=== PATIENT | female | born 1955 | race Caucasian/White ===

== ENCOUNTER 2017-05-29 07:11 | Observation (INO) | payer OTHER, MEDICAID ==
[2017-05-29 07:12] VITALS: BMI 23.8
[2017-05-29 08:05] LABS: BASO # 0.1 K/uL (0.0-0.2); BASO % 0.8 % (0.0-2.0); EOS # 0.1 K/uL (0.0-0.7); EOS % 0.7 % (0.0-4.0); LYMPH # 1.3 K/uL (1.0-4.3); LYMPH % 17.8 % (20.0-40.0); MEAN CELL VOLUME 87.3 fL (81.0-99.0); MEAN CORPUSCULAR HEMOGLOBIN 29.5 pg (27.0-31.0); MEAN CORPUSCULAR HGB CONC 33.8 g/dL (33.0-37.0); MEAN PLATELET VOLUME 9.5 fL (7.2-11.7); MONO # 0.5 K/uL (0.0-0.8); MONO % 7.2 % (0.0-10.0); RED CELL DISTRIBUTION WIDTH 13.7 % (11.5-14.5); WHITE BLOOD COUNT 7.4 K/uL (4.8-10.8)
--- NOTE | 2017-05-29 08:08 | C.PDOC ---
History Of Present Illness 61 y/o female, with PMHx of HTN, diabetes, hyperlipidemia, presents to ED for evaluation of intermittent left sided chest pain described as pressure for the last 2 days. Patient states that pain radiates to the left side of her back, and it is occasionally associated with shortness of breath. Pt reports being seen by PMD and theater manager, Dr. Cavanaugh, yesterday - instructed her to come to ER if symptoms returned. Pt notes taking nitroglycerin yesterday and today with transient relief of pain. She denies headache, fever, chills, cough, nausea, vomiting, diarrhea, diaphoresis,back pain, or lower extremity pain/ swelling. Time Seen by Provider: 05/29/17 07:15 Chief Complaint (Nursing): Chest Pain History Per: Patient History/Exam Limitations: no limitations Onset/Duration Of Symptoms: Days (2), Intermittent Episodes Current Symptoms Are (Timing): Still Present Severity: Mild Quality: Pressure Associated Symptoms: denies: Nausea, Diaphoresis, Syncope Modifying Factors: None Exacerbating Factors: None Alleviating Factors: None Additional History Per: Patient Past Medical History Reviewed: Historical Data, Nursing Documentation, Vital Signs Vital Signs: Last Vital Signs Temp 99.1 F 05/30/17 15:32 Pulse 82 05/30/17 16:00 Resp 20 05/30/17 15:32 BP 159/73 H 05/30/17 15:32 Pulse Ox 96 05/30/17 23:22 - Medical History PMH: Diabetes, HTN, Hyperlipidemia Family History: States: Other Other Family History: CAD - Social History Hx Tobacco Use: Yes (quit smoking 25 years ago ) Hx Alcohol Use: Yes Hx Substance Use: No - Immunization History Hx Tetanus Toxoid Vaccination: No Hx Influenza Vaccination: Yes Hx Pneumococcal Vaccination: Yes Review Of Systems Except As Marked, All Systems Reviewed And Found Negative. Constitutional: Negative for: Fever, Chills Cardiovascular: Positive for: Chest Pain. Negative for: Palpitations, Edema, Light Headedness Respiratory: Positive for: Shortness of Breath. Negative for: Cough, Sputum Gastrointestinal: Negative for: Nausea, Vomiting, Abdominal Pain Musculoskeletal: Positive for: Back Pain (left side). Negative for: Neck Pain Neurological: Negative for: Headache, Dizziness Physical Exam - Physical Exam Appears: Well, Non-toxic, No Acute Distress, Other (speaking in full sentences) Skin: Warm, Dry Head: Normacephalic Eye(s): bilateral: Normal Inspection Oral Mucosa: Moist Neck: Supple Chest: Symmetrical, No Deformity, No Tenderness Cardiovascular: Rhythm Regular Respiratory: Normal Breath Sounds, No Rales, No Rhonchi, No Wheezing Gastrointestinal/Abdominal: Normal Exam, Bowel Sounds, Soft, No Tenderness Back: Normal Inspection, No CVA Tenderness Extremity: Normal ROM, No Pedal Edema, No Calf Tenderness, Capillary Refill (<2 sec all digits), No Deformity Neurological/Psych: Oriented x3 ED Course And Treatment - Laboratory Results Result Diagrams: 05/30/17 07:06 05/30/17 07:06 ECG: Interpreted By Me, Viewed By Me ECG Rhythm: Sinus Rhythm ECG Interpretation: Normal Interpretation Of ECG: Normal axis. No acute ST/T wave changes. Rate From EC (bpm) O2 Sat by Pulse Oximetry: 96 (on RA) Pulse Ox Interpretation: Normal - Other Rad CXR X-Ray: Viewed By Me, Read By Radiologist Interpretation: Accession No. : [id number]. Patient Name / ID : DEBRA JACOBO / [id number]. Exam Date : 05/29/2017 07:46:51 ( Approved ). Study Comment : Sex / Age : F / 61Y. Creator : Abril Bishop. Dictator : Abril Bishop. Director Business Travel : Certified Genetic Counselor : Abril Bishop. Approver2 : Report Date : 05/29/2017 08:13:46. My Comment : . PROCEDURE: CHEST RADIOGRAPH, 1 VIEW. HISTORY: cp. COMPARISON: None available. FINDINGS: LUNGS: Clear. PLEURA: No pneumothorax or pleural fluid seen. CARDIOVASCULAR: Normal. OSSEOUS STRUCTURES: No significant abnormalities. VISUALIZED UPPER ABDOMEN: Normal. OTHER FINDINGS: None. IMPRESSION: No active disease. Progress Note: Blood work, CXR, EKG ordered and reviewed. Patient was given Aspirin PO, Lisinopril PO, and Isosorbide PO (patient did not take her BP meds today). IV insulin given for hyperglycemia. Spoke with hospitalist Dr. Gordon , agrees with telemetry admission for chest pain, r/o ACS. - Physician Consult Information Physician Contacted: Juliano Cavanaugh Outcome Of Conversation: Discussed patient with Dr. Cavanaugh, will see patient for cardiology consult - requests hospitalist admission. Disposition - Disposition Disposition: HOSPITALIZED Disposition Time: 10:23 Condition: STABLE - Clinical Impression Clinical Impression: Chest pain, Hyperglycemia - Scribe Statement The provider has reviewed the documentation as recorded by the Scribe Philippe Khan All medical record entries made by the Scribe were at my direction and personally dictated by me. I have reviewed the chart and agree that the record accurately reflects my personal performance of the history, physical exam, medical decision making, and the department course for this patient. I have also personally directed, reviewed, and agree with the discharge instructions and disposition. Decision To Admit - Pt Status Changed To: Hospital Disposition Of: Inpatient - Admit Certification Admit to Inpatient:: After my assessment, the patient will require hospitalization for at least two midnights. This is because of the severity of symptoms shown, intensity of services needed, and/or the medical risk in this patient being treated as an outpatient. - InPatient: Physician Admission Certification: I certify that this patient requires 2 or more midnights of care for the following reason:: see notes - . Bed Request Type: Telemetry Admitting Physician: Renita Gordon Patient Diagnosis: Chest pain, Hyperglycemia
--- NOTE | 2017-05-29 08:15 | RAD ---
PROCEDURE: CHEST RADIOGRAPH, 1 VIEW HISTORY: cp COMPARISON: None available. FINDINGS: LUNGS: Clear. PLEURA: No pneumothorax or pleural fluid seen. CARDIOVASCULAR: Normal. OSSEOUS STRUCTURES: No significant abnormalities. VISUALIZED UPPER ABDOMEN: Normal. OTHER FINDINGS: None. IMPRESSION: No active disease.
[2017-05-29 08:26] LABS: CHLORIDE 96 mmol/L (98-107); POTASSIUM 3.9 mmol/L (3.6-5.2); SODIUM 137 mmol/L (132-148)
[2017-05-29 08:28] LABS: AST/SGOT 72 U/L (14-36); BILIRUBIN,TOTAL 0.6 mg/dL (0.2-1.3); CARBON DIOXIDE 25 mmol/L (22-30); GFR AFRICAN-AMERICAN > 60
[2017-05-29 08:29] LABS: ALB/GLOB RATIO 1.3 (1.0-2.1); ALKALINE PHOSPHATASE 63 U/L (38-126); ALT/SGPT 109 U/L (9-52); BLOOD UREA NITROGEN 15 mg/dL (7-17); CALCIUM 8.4 mg/dl (8.6-10.4); GLUCOSE,RANDOM 332 mg/dL (65-105); TOTAL PROTEIN 6.9 g/dL (6.3-8.3)
[2017-05-29] MEDS ORDERED: (Novolin R) Insulin Human Regular 100 units/ml vial IV ONE (09:10)
[2017-05-29] MEDS ORDERED: (Novolin R) Insulin Human Regular 100 units/ml vial ONE (09:35)
--- NOTE | 2017-05-29 12:39 | CP.PCM.HP ---
Addendum entered and electronically signed by WellsMaster DO Xiomara 05/29/17 13: 30: Patient is also on Imdur 30mg daily as for HTN. Original Note: <Master Wells - Last Filed: 05/29/17 12:52> History of Present Illness - History of Present Illness History of Present Illness: CC: Chest Pain HPI: Patient is a 61 year old female with a history of uncontrolled IDDM, HTN, and hyperlipidemia. She is here because of reoccurring chest pain she has been having the past two days. The pain occurred while at rest 2 days ago which she says is on the left side just above her breast and also radiates to her back as well. She describes the pain as a sharp pain that is sometimes 9/10. Yesterday while driving to work she says the pain felt "heavy". She also said her blood pressure was very at 200s/100. She said they gave her nitro which she said relieved her pain. She went to see her gambling cashier yesterday as well who advised her to go to the ED if her pain returned. She started having the pain again this morning. She admits to drinking one cup of coffee before coming the hospital in her car. She admits that she had the same kind of pain about a week ago as well. She reports having a stress test last year which she thinks was normal. She does not remember having an electrocardiogram preformed. PMH: see above PSH: denies FH: Mother heart disease, DM, HTN, chronic kidney disease SH: , works as a nurse in a prison, former smoker quit 25 years ago, social drinking with one drink every month, denies illicit drug use. Allergies: NKDA PMD: Dr. Renner Behavioral Consultant: Dr. Cavanaugh Present on Admission - Present on Admission Any Indicators Present on Admission: No History of DVT/PE: No History of Uncontrolled Diabetes: Yes Urinary Catheter: No Decubitus Ulcer Present: No History Surgical Site Infection Following: None Review of Systems - Review of Systems All systems: reviewed and no additional remarkable complaints except - Constitutional Constitutional: absent: Chills, Fever, Weakness - EENT Eyes: absent: Change in Vision, Loss of Vision Ears: absent: Dizziness - Cardiovascular Cardiovascular: Chest Pain, Chest Pain at Rest, Chest Pain with Activity, Radiating Pain. absent: Dyspnea, Edema, Lightheadedness, Palpitations - Respiratory Respiratory: absent: Cough, Dyspnea - Gastrointestinal Gastrointestinal: absent: Abdominal Pain, Cramping, Diarrhea, Nausea, Vomiting - Genitourinary Genitourinary: absent: Dysuria - Musculoskeletal Musculoskeletal: Back Pain. absent: Numbness, Tingling - Integumentary Integumentary: absent: Swelling - Neurological Neurological: absent: Dizziness, Numbness, Paresthesias, Tingling, Weakness - Psychiatric Psychiatric: absent: Anxiety - Endocrine Endocrine: absent: Palpitations Past Patient History - Past Medical History & Family History Past Medical History?: Yes - Past Social History Smoking Status: Never Smoked - CARDIAC Hx Hypertension: Yes - PULMONARY Hx Respiratory Disorders: No - NEUROLOGICAL Hx Neurological Disorder: No - HEENT Hx HEENT Problems: No - RENAL Hx Chronic Kidney Disease: No - ENDOCRINE/METABOLIC Hx Endocrine Disorders: Yes Hx Diabetes Mellitus Type 2: Yes - HEMATOLOGICAL/ONCOLOGICAL Hx Blood Disorders: No - INTEGUMENTARY Hx Dermatological Problems: No - MUSCULOSKELETAL/RHEUMATOLOGICAL Hx Musculoskeletal Disorders: No - GASTROINTESTINAL Hx Gastrointestinal Disorders: No - GENITOURINARY/GYNECOLOGICAL Hx Genitourinary Disorders: No - PSYCHIATRIC Hx Substance Use: No - SURGICAL HISTORY Hx Surgeries: Yes - ANESTHESIA Hx Anesthesia: Yes Hx Anesthesia Reactions: No Meds Allergies/Adverse Reactions: Allergies Allergy/AdvReac Type Severity Reaction Status Date / Time No Known Allergies Allergy Verified 05/29/17 07:32 Physical Exam - Constitutional Appears: Non-toxic, No Acute Distress - Eye Exam Eye Exam: Normal appearance, PERRL. absent: Nystagmus, Scleral icterus Pupil Exam: NORMAL ACCOMODATION - ENT Exam ENT Exam: Normal Exam - Neck Exam Neck exam: Positive for: Normal Inspection. Negative for: Thyromegaly - Respiratory Exam Respiratory Exam: Clear to Auscultation Bilateral, NORMAL BREATHING PATTERN. absent: Rales, Rhonchi, Wheezes - Cardiovascular Exam Cardiovascular Exam: REGULAR RHYTHM, RRR, +S1 (soft), +S2. absent: Diastolic murmur, Gallop, Irregular Rhythm, Rubs, Systolic Murmur - GI/Abdominal Exam GI & Abdominal Exam: Normal Bowel Sounds, Soft. absent: Guarding, Rebound, Tenderness - Extremities Exam Extremities exam: Positive for: normal inspection. Negative for: calf tenderness, pedal edema, tenderness - Back Exam Back exam: NORMAL INSPECTION. absent: CVA tenderness (L), CVA tenderness (R) - Neurological Exam Neurological exam: Alert, Oriented x3 - Psychiatric Exam Psychiatric exam: Normal Affect, Normal Mood - Skin Skin Exam: Dry, Normal Color, Warm Results - Vital Signs Recent Vital Signs: Last Vital Signs Temp 98.3 F 05/29/17 10:38 Pulse 80 05/29/17 12:28 Resp 16 05/29/17 12:28 BP 165/87 H 05/29/17 12:28 Pulse Ox 96 05/29/17 12:28 - Labs Result Diagrams: 05/29/17 07:59 05/29/17 07:59 Labs: Laboratory Results - last 24 hr 05/29/17 05/29/17 05/29/17 07:59 07:59 07:59 WBC 7.4 RBC 4.92 Hgb 14.5 Hct 43.0 MCV 87.3 MCH 29.5 MCHC 33.8 RDW 13.7 Plt Count 186 MPV 9.5 Neut % (Auto) 73.5 Lymph % (Auto) 17.8 L [place] % (Auto) 7.2 Eos % (Auto) 0.7 Baso % (Auto) 0.8 Neut # 5.4 Lymph # 1.3 [place] # 0.5 Eos # 0.1 Baso # 0.1 PT 10.8 INR 1.0 APTT 32 Sodium 137 Potassium 3.9 Chloride 96 L Carbon Dioxide 25 Anion Gap 20 BUN 15 Creatinine 0.6 L Est GFR ( Amer) > 60 Est GFR (Non-Af Amer) > 60 POC Glucose (mg/dL) Random Glucose 332 H Calcium 8.4 L Total Bilirubin 0.6 AST 72 H ALT 109 H Alkaline Phosphatase 63 Total Creatine Kinase 140 H CK-MB (Mass) 1.16 Troponin I < 0.0120 NT-Pro-B Natriuret Pep 170 Total Protein 6.9 Albumin 3.9 Globulin 3.0 Albumin/Globulin Ratio 1.3 05/29/17 05/29/17 08:03 10:35 WBC RBC Hgb Hct MCV MCH MCHC RDW Plt Count MPV Neut % (Auto) Lymph % (Auto) [place] % (Auto) Eos % (Auto) Baso % (Auto) Neut # Lymph # [place] # Eos # Baso # PT INR APTT Sodium Potassium Chloride Carbon Dioxide Anion Gap BUN Creatinine Est GFR ( Amer) Est GFR (Non-Af Amer) POC Glucose (mg/dL) 358 H 232 H Random Glucose Calcium Total Bilirubin AST ALT Alkaline Phosphatase Total Creatine Kinase CK-MB (Mass) Troponin I NT-Pro-B Natriuret Pep Total Protein Albumin Globulin Albumin/Globulin Ratio Assessment & Plan (1) Stable angina Assessment and Plan: Patient is to be admitted to tele/inpatient, Dr. Cavanaugh Behavioral Consultant consulted. Morphine 2mg IVP q4h prn for pain, 4mg of Zofran IVP Q6H prn for nausea, Nitro SL as needed for chest pain. Continue her home Aspirin, she was given Aspirin 325mg in the ED. EKG reviewed in the ED showed no ST elevations or depressions. Labs reviewed, negative for elevated troponin, her LFTs were elevated. Orderd for echo, berta q6H x2, next day am labs cbc, cmp, mag, phos, tsh, free t4 , lipid panel, and Hbg a1c. Status: Acute Priority: High (2) Elevated LFTs Assessment and Plan: Most likely an cute phase reactant, Hepatitis panel and abdominal ultrasound. Status: Acute Priority: High (3) DM (diabetes mellitus), type 2, uncontrolled Assessment and Plan: Patient is on Tresiba 90 units daily which is not in formula, spoke with pharmacist who reccomends Lantus 70 units, Novolog 14 units AC, accu checks with sliding scale medium protocol. Janumet 1000-50mg. Held her home Glimipride. follow up morning Hbg a1c. Status: Chronic Priority: High (4) HTN (hypertension) Assessment and Plan: Lisinopril 40mg, continue home Aspirin 81mg Status: Chronic Priority: High (5) Hyperlipidemia Assessment and Plan: Pravastatin 20mg will change to Crestor equivalent, and also Tricor 145mg. Status: Chronic Priority: High (6) Prophylactic measure Assessment and Plan: Heparin 5000 units SC q8H, SCDs Protonix 40mg Status: Acute Priority: Medium - Assessment and Plan (Free Text) Assessment: Case was discussed with medical attending Dr. Gordon <Renita Gordon V - Last Filed: 05/29/17 22:52> Results - Vital Signs Recent Vital Signs: Last Vital Signs Temp 98.2 F 05/29/17 15:35 Pulse 74 05/29/17 15:35 Resp 20 05/29/17 15:35 BP 154/86 H 05/29/17 15:35 Pulse Ox 97 05/29/17 15:35 - Labs Result Diagrams: 05/29/17 07:59 05/29/17 07:59 Labs: Laboratory Results - last 24 hr 05/29/17 05/29/17 05/29/17 07:59 07:59 07:59 WBC 7.4 RBC 4.92 Hgb 14.5 Hct 43.0 MCV 87.3 MCH 29.5 MCHC 33.8 RDW 13.7 Plt Count 186 MPV 9.5 Neut % (Auto) 73.5 Lymph % (Auto) 17.8 L [place] % (Auto) 7.2 Eos % (Auto) 0.7 Baso % (Auto) 0.8 Neut # 5.4 Lymph # 1.3 [place] # 0.5 Eos # 0.1 Baso # 0.1 PT 10.8 INR 1.0 APTT 32 Sodium 137 Potassium 3.9 Chloride 96 L Carbon Dioxide 25 Anion Gap 20 BUN 15 Creatinine 0.6 L Est GFR ( Amer) > 60 Est GFR (Non-Af Amer) > 60 POC Glucose (mg/dL) Random Glucose 332 H Calcium 8.4 L Total Bilirubin 0.6 AST 72 H ALT 109 H Alkaline Phosphatase 63 Total Creatine Kinase 140 H CK-MB (Mass) 1.16 Troponin I < 0.0120 Troponin I, Quant NT-Pro-B Natriuret Pep 170 Total Protein 6.9 Albumin 3.9 Globulin 3.0 Albumin/Globulin Ratio 1.3 05/29/17 05/29/17 05/29/17 08:03 10:35 16:35 WBC RBC Hgb Hct MCV MCH MCHC RDW Plt Count MPV Neut % (Auto) Lymph % (Auto) [place] % (Auto) Eos % (Auto) Baso % (Auto) Neut # Lymph # [place] # Eos # Baso # PT INR APTT Sodium Potassium Chloride Carbon Dioxide Anion Gap BUN Creatinine Est GFR ( Amer) Est GFR (Non-Af Amer) POC Glucose (mg/dL) 358 H 232 H 270 H Random Glucose Calcium Total Bilirubin AST ALT Alkaline Phosphatase Total Creatine Kinase CK-MB (Mass) Troponin I Troponin I, Quant NT-Pro-B Natriuret Pep Total Protein Albumin Globulin Albumin/Globulin Ratio 05/29/17 05/29/17 05/29/17 16:43 19:39 21:00 WBC RBC Hgb Hct MCV MCH MCHC RDW Plt Count MPV Neut % (Auto) Lymph % (Auto) [place] % (Auto) Eos % (Auto) Baso % (Auto) Neut # Lymph # [place] # Eos # Baso # PT INR APTT Sodium Potassium Chloride Carbon Dioxide Anion Gap BUN Creatinine Est GFR ( Amer) Est GFR (Non-Af Amer) POC Glucose (mg/dL) 240 H Random Glucose Calcium Total Bilirubin AST ALT Alkaline Phosphatase Total Creatine Kinase 158 H 140 H CK-MB (Mass) 0.88 0.91 Troponin I Troponin I, Quant < 0.0120 < 0.0120 NT-Pro-B Natriuret Pep Total Protein Albumin Globulin Albumin/Globulin Ratio Attending/Attestation - Attestation I have personally seen and examined this patient.: Yes I have fully participated in the care of the patient.: Yes I have reviewed all pertinent clinical information: Yes Notes (Text): Patient seen, examined, and case discussed with day-time resident. Patient seen in [facility] 15 with day-time resident approximately 12:15PM on . Patient seen with cardiovascular risk factors reports episodes of persistent chest pain which abated after nitro. Patient reports she was seen and evaluated by her PMD: Dr Quentin Renner and Dr. Cavanaugh, cardiology. Patient was told she continues to have chest pain to come to the hospital and be evaluated. 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 She reports she had chest pain left side of chest, no associated neck/jaw/arm pain. Patient has had a stress test last year cannot recall the results. Unsure if she has had an echocardiogram. Adjusted orders by the resident. Held metformin. Add EKGS to follow with patient 's ROMIs Assessment/Plan (1) Stable angina Assessment and Plan: * Patient is to be admitted to tele/inpatient, Dr. Cavanaugh Behavioral Consultant consulted. * Morphine 2mg IVP q4h prn for pain, 4mg of Zofran IVP Q6H prn for nausea, Nitro SL as needed for chest pain. * Continue her home Aspirin, she was given Aspirin 325mg in the ED. * EKG reviewed in the ED showed no ST elevations or depressions. * Labs reviewed, negative for elevated troponin, her LFTs were elevated. * F/u echo, * berta q6H x2 * Tsh, free t4, lipid panel, and Hbg a1c. Status: Acute Priority: High (2) Elevated LFTs Assessment and Plan: * Most likely an cute phase reactant, Hepatitis panel and abdominal ultrasound. Status: Acute Priority: High (3) DM (diabetes mellitus), type 2, uncontrolled Assessment and Plan: * Patient is on Tresiba 90 units daily which is not in formula, resident spoke with pharmacist who recomends Lantus 70 units, Novolog 14 units AC, * Accu checks with sliding scale medium protocol. * Held Metformin component of Janumet 1000-50mg. * Held her home Glimipride. follow up morning Hbg a1c. Status: Chronic Priority: High (4) HTN (hypertension) Assessment and Plan: * Lisinopril 40mg PO daily * Imdur 30mg PO daily * Aspirin 81mg PO daily Status: Chronic Priority: High (5) Hyperlipidemia Assessment and Plan: * Pravastatin 20mg will change to Crestor equivalent, and also Tricor 145mg PO Daily * Will need to monitor her LFTs Status: Chronic Priority: High (6) Prophylactic measure Assessment and Plan: * Heparin 5000 units SC q8H, SCDs * Pepcid 20mg PO BID
[2017-05-29] MEDS ORDERED: INSULIN LISPRO 14 UNIT SQ SCH (14:00)
--- NOTE | 2017-05-29 14:47 | US ---
HISTORY: elevated LFTs COMPARISON: None. TECHNIQUE: Sonographic evaluation of the abdomen. FINDINGS: LIVER: Measures cm. Increased echogenicity of the liver parenchyma. No mass. No intrahepatic bile duct dilatation. GALLBLADDER: Unremarkable. No gallstones. COMMON BILE DUCT: Measures mm. No stones. No dilatation. PANCREAS: Unremarkable as visualized. No mass. No ductal dilatation. RIGHT KIDNEY: Measures cm. Normal echogenicity. No calculus, mass, or hydronephrosis. LEFT KIDNEY: Measures cm. Normal echogenicity. No calculus, mass, or hydronephrosis. SPLEEN: Normal in size and contour. No mass. AORTA: No aneurysmal dilatation. IVC: Unremarkable. OTHER FINDINGS: None. IMPRESSION: Increased echogenicity of liver compatible fibro/fatty infiltration.
[2017-05-29] MEDS ORDERED: Glucagon Recombinant 1 mg Inj IM PRN (17:21)
[2017-05-29] MEDS ORDERED: Dextrose 50% SYRINGE Inj (50 ml) IV PRN (17:21)
[2017-05-29] MEDS ORDERED: Home Med 1 UNIT (Sitagliptin Phos/Metformin Hcl [Janumet 50-1,000 Mg Tablet] 1 TAB) PO SCH (18:00)
[2017-05-29] MEDS: (Novolin R) Insulin Human Regular 100 units/ml vial SC SCH ×2 (18:22→21:33)
--- NOTE | 2017-05-29 20:16 | CARD ---
APPROVED REPORT EXAM: Two-dimensional and M-mode echocardiogram with Doppler and color Doppler. Other Information Quality : GoodRhythm : NSR INDICATION Chest Pain RISK FACTORS Hypertension Diabetes 2D DIMENSIONS IVSd0.8 (0.7-1.1cm)LVDd4.1 (3.9-5.9cm) PWd0.9 (0.7-1.1cm)LVDs2.5 (2.5-4.0cm) FS (%) 38.8 %LVEF (%)69.6 (>50%) M-Mode DIMENSIONS Left Atrium (MM)3.64 (2.5-4.0cm)Aortic Root2.97 (2.2-3.7cm) Aortic Cusp Exc.2.24 (1.5-2.0cm) Mitral Valve MV E Zqryfizv97.7cm/sMV A Rjvwlprt58.2cm/sE/A ratio1.1 TDI E/Lateral E'0.0E/Medial E'0.0 Tricuspid Valve TR Peak Pyofnswb644hp/sTR Peak Gr.[id number] LEFT VENTRICLE The left ventricle is normal size. There is normal left ventricular wall thickness. The left ventricular function is normal. The left ventricular ejection fraction is within the normal range. No regional wall motion abnormalities noted. The left ventricular diastolic function is normal. No left ventricle thrombus noted on this study. There is no ventricular septal defect visualized. There is no left ventricular aneurysm. There is no mass noted in the left ventricle. RIGHT VENTRICLE The right ventricle is normal size. There is normal right ventricular wall thickness. The right ventricular systolic function is normal. ATRIA The left atrium size is normal. The right atrium size is normal. The interatrial septum is intact with no evidence for an atrial septal defect. AORTIC VALVE The aortic valve is normal in structure and function. There is mild aortic regurgitation. There is no aortic valvular stenosis. There is no aortic valvular vegetation. MITRAL VALVE The mitral valve is normal in structure and function. There is no evidence of mitral valve prolapse. There is no mitral valve stenosis. There is no mitral valve regurgitation noted. TRICUSPID VALVE The tricuspid valve is normal in structure and function. There is no tricuspid valve regurgitation noted. There is no tricuspid valve prolapse or vegetation. There is no tricuspid valve stenosis. PULMONIC VALVE The pulmonary valve is normal in structure and function. There is no pulmonic valvular regurgitation. There is no pulmonic valvular stenosis. GREAT VESSELS The aortic root is normal in size. The ascending aorta is normal in size. The pulmonary artery is normal. The IVC is normal in size and collapses >50% with inspiration. PERICARDIAL EFFUSION The pericardium appears normal. There is no pleural effusion. <Conclusion> The left ventricular function is normal. The left ventricular ejection fraction is within the normal range. No regional wall motion abnormalities noted. There is mild aortic regurgitation.
[2017-05-29] MEDS: (Lantus) Insulin Glargine, Recombinant SC SCH (21:31)
[2017-05-29] MEDS: Rosuvastatin Calcium 2.5 mg Tab PO SCH (21:31)
[2017-05-29] MEDS ORDERED: INSULIN DEGLUDEC 90 UNIT SC SCH (22:00)
--- NOTE | 2017-05-29 22:53 | CP.PCM.CON ---
History of Present Illness - History of Present Illness History of Present Illness: 61 F with hx of DM2, HTN and Hyperlipidemia admitted with chest pain CC: Chest Pain HPI: Patient is a 61 year old female with a history of uncontrolled IDDM, HTN, and hyperlipidemia. She is here because of reoccurring chest pain she has been having the past two days. The pain occurred while at rest 2 days ago which she says is on the left side just above her breast and also radiates to her back as well. She describes the pain as a sharp pain that is sometimes 9/10. Yesterday while driving to work she says the pain felt "heavy". She also said her blood pressure was very at 200s/100. She said they gave her nitro which she said relieved her pain. She went to see her sow farm barn technician yesterday as well who advised her to go to the ED if her pain returned. She started having the pain again this morning. She admits to drinking one cup of coffee before coming the hospital in her car. She admits that she had the same kind of pain about a week ago as well. She reports having a stress test last year which was normal. She does not remember having an electrocardiogram preformed. 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 Allergies: NKDA PMD: Dr. Renner Present on Admission - Present on Admission Any Indicators Present on Admission: No History of DVT/PE: No History of Uncontrolled Diabetes: Yes Urinary Catheter: No Decubitus Ulcer Present: No History Surgical Site Infection Following: None Review of Systems - Review of Systems All systems: reviewed and no additional remarkable complaints except - Constitutional Constitutional: absent: Chills, Fever, Weakness - EENT Eyes: absent: Change in Vision, Loss of Vision Ears: absent: Dizziness - Cardiovascular Cardiovascular: Chest Pain, Chest Pain at Rest, Chest Pain with Activity, Radiating Pain. absent: Dyspnea, Edema, Lightheadedness, Palpitations - Respiratory Respiratory: absent: Cough, Dyspnea - Gastrointestinal Gastrointestinal: absent: Abdominal Pain, Cramping, Diarrhea, Nausea, Vomiting - Genitourinary Genitourinary: absent: Dysuria - Musculoskeletal Musculoskeletal: Back Pain. absent: Numbness, Tingling - Integumentary Integumentary: absent: Swelling - Neurological Neurological: absent: Dizziness, Numbness, Paresthesias, Tingling, Weakness - Psychiatric Psychiatric: absent: Anxiety - Endocrine Endocrine: absent: Palpitations Physical Exam - Constitutional Appears: Non-toxic, No Acute Distress - Eye Exam Eye Exam: Normal appearance, PERRL. absent: Nystagmus, Scleral icterus Pupil Exam: NORMAL ACCOMODATION - ENT Exam ENT Exam: Normal Exam - Neck Exam Neck exam: Positive for: Normal Inspection. Negative for: Thyromegaly - Respiratory Exam Respiratory Exam: Clear to Auscultation Bilateral, NORMAL BREATHING PATTERN. absent: Rales, Rhonchi, Wheezes - Cardiovascular Exam Cardiovascular Exam: REGULAR RHYTHM, RRR, +S1 (soft), +S2. absent: Diastolic murmur, Gallop, Irregular Rhythm, Rubs, Systolic Murmur - GI/Abdominal Exam GI & Abdominal Exam: Normal Bowel Sounds, Soft. absent: Guarding, Rebound, Tenderness - Extremities Exam Extremities exam: Positive for: normal inspection. Negative for: calf tenderness, pedal edema, tenderness - Back Exam Back exam: NORMAL INSPECTION. absent: CVA tenderness (L), CVA tenderness (R) - Neurological Exam Neurological exam: Alert, Oriented x3 - Psychiatric Exam Psychiatric exam: Normal Affect, Normal Mood - Skin Skin Exam: Dry, Normal Color, Warm Past Patient History - Past Medical History & Family History Past Medical History?: Yes - Past Social History Smoking Status: Former Smoker - CARDIAC Hx Hypertension: Yes - PULMONARY Hx Respiratory Disorders: No - NEUROLOGICAL Hx Neurological Disorder: No - HEENT Hx HEENT Problems: No - RENAL Hx Chronic Kidney Disease: No - ENDOCRINE/METABOLIC Hx Endocrine Disorders: Yes Hx Diabetes Mellitus Type 2: Yes - HEMATOLOGICAL/ONCOLOGICAL Hx Blood Disorders: No - INTEGUMENTARY Hx Dermatological Problems: No - MUSCULOSKELETAL/RHEUMATOLOGICAL Hx Musculoskeletal Disorders: No Hx Falls: No - GASTROINTESTINAL Hx Gastrointestinal Disorders: No - GENITOURINARY/GYNECOLOGICAL Hx Genitourinary Disorders: No - PSYCHIATRIC Hx Substance Use: No - SURGICAL HISTORY Hx Surgeries: Yes - ANESTHESIA Hx Anesthesia: Yes Hx Anesthesia Reactions: No Meds Allergies/Adverse Reactions: Allergies Allergy/AdvReac Type Severity Reaction Status Date / Time No Known Allergies Allergy Verified 05/29/17 07:32 - Medications Medications: Current Medications Aspirin (Aspirin Chewable) 81 mg PO DAILY [facility] Last Admin: 05/29/17 13:39 Dose: 81 mg Dextrose (Dextrose 50% Inj) 0 ml IV STAT PRN; Protocol PRN Reason: Hyglycemia Protocol Dextrose (Glutose 15) 0 gm PO ONCE PRN; Protocol PRN Reason: Hypoglycemia Protocol Famotidine (Pepcid) 20 mg PO BID [facility] Fenofibrate (Tricor) 145 mg PO DAILY [facility] Heparin Sodium (Porcine) (Heparin) 5,000 units SC Q8 [facility] Last Admin: 05/29/17 21:33 Dose: Not Given Dextrose (Dextrose 5% In Water 1000 Ml) 1,000 mls @ 0 mls/hr IV .Q0M PRN; Protocol; Per Protocol PRN Reason: Hypoglycemia Protocol Insulin Aspart (Novolog) 14 unit SC AC [facility] Insulin Glargine (Lantus) 70 unit SC [facility] Last Admin: 05/29/17 21:31 Dose: 70 units Insulin Human Regular (Novolin R) 0 unit SC ACHS [facility] PRN Reason: Protocol Last Admin: 05/29/17 21:33 Dose: Not Given Isosorbide Mononitrate (Imdur Er) 30 mg PO DAILY [facility] Lisinopril (Zestril) 40 mg PO DAILY [facility] Morphine Sulfate (Morphine) 2 mg IVP Q4H PRN PRN Reason: Pain, severe (8-10) Nitroglycerin (Nitrostat Sl Tab) 0.4 mg SL Q5M PRN PRN Reason: Other Last Admin: 05/29/17 15:00 Dose: 0.4 mg Ondansetron HCl (Zofran Inj) 4 mg IVP Q6 PRN PRN Reason: Nausea/Vomiting Rosuvastatin Calcium (Crestor) 2.5 mg PO [facility] Last Admin: 05/29/17 21:31 Dose: 2.5 mg Sitagliptin Phosphate ([facility]ia) [facility] Last Admin: 05/29/17 18:20 Dose: 50 mg Results - Vital Signs Recent Vital Signs: Last Vital Signs Temp 98.2 F 05/29/17 15:35 Pulse 74 05/29/17 15:35 Resp 20 05/29/17 15:35 BP 154/86 H 05/29/17 15:35 Pulse Ox 97 05/29/17 15:35 - Labs Result Diagrams: 05/30/17 07:06 05/30/17 07:06 Labs: Laboratory Results - last 24 hr 05/29/17 05/29/17 05/29/17 07:59 07:59 07:59 WBC 7.4 RBC 4.92 Hgb 14.5 Hct 43.0 MCV 87.3 MCH 29.5 MCHC 33.8 RDW 13.7 Plt Count 186 MPV 9.5 Neut % (Auto) 73.5 Lymph % (Auto) 17.8 L [place] % (Auto) 7.2 Eos % (Auto) 0.7 Baso % (Auto) 0.8 Neut # 5.4 Lymph # 1.3 [place] # 0.5 Eos # 0.1 Baso # 0.1 PT 10.8 INR 1.0 APTT 32 Sodium 137 Potassium 3.9 Chloride 96 L Carbon Dioxide 25 Anion Gap 20 BUN 15 Creatinine 0.6 L Est GFR ( Amer) > 60 Est GFR (Non-Af Amer) > 60 POC Glucose (mg/dL) Random Glucose 332 H Calcium 8.4 L Total Bilirubin 0.6 AST 72 H ALT 109 H Alkaline Phosphatase 63 Total Creatine Kinase 140 H CK-MB (Mass) 1.16 Troponin I < 0.0120 Troponin I, Quant NT-Pro-B Natriuret Pep 170 Total Protein 6.9 Albumin 3.9 Globulin 3.0 Albumin/Globulin Ratio 1.3 05/29/17 05/29/17 05/29/17 08:03 10:35 16:35 WBC RBC Hgb Hct MCV MCH MCHC RDW Plt Count MPV Neut % (Auto) Lymph % (Auto) [place] % (Auto) Eos % (Auto) Baso % (Auto) Neut # Lymph # [place] # Eos # Baso # PT INR APTT Sodium Potassium Chloride Carbon Dioxide Anion Gap BUN Creatinine Est GFR ( Amer) Est GFR (Non-Af Amer) POC Glucose (mg/dL) 358 H 232 H 270 H Random Glucose Calcium Total Bilirubin AST ALT Alkaline Phosphatase Total Creatine Kinase CK-MB (Mass) Troponin I Troponin I, Quant NT-Pro-B Natriuret Pep Total Protein Albumin Globulin Albumin/Globulin Ratio 05/29/17 05/29/17 05/29/17 16:43 19:39 21:00 WBC RBC Hgb Hct MCV MCH MCHC RDW Plt Count MPV Neut % (Auto) Lymph % (Auto) [place] % (Auto) Eos % (Auto) Baso % (Auto) Neut # Lymph # [place] # Eos # Baso # PT INR APTT Sodium Potassium Chloride Carbon Dioxide Anion Gap BUN Creatinine Est GFR ( Amer) Est GFR (Non-Af Amer) POC Glucose (mg/dL) 240 H Random Glucose Calcium Total Bilirubin AST ALT Alkaline Phosphatase Total Creatine Kinase 158 H 140 H CK-MB (Mass) 0.88 0.91 Troponin I Troponin I, Quant < 0.0120 < 0.0120 NT-Pro-B Natriuret Pep Total Protein Albumin Globulin Albumin/Globulin Ratio Assessment & Plan - Assessment and Plan (Free Text) Assessment: (1) Stable angina Assessment and Plan: Morphine 2mg IVP q4h prn for pain, 4mg of Zofran IVP Q6H prn for nausea, Nitro SL as needed for chest pain. Continue her home Aspirin, she was given Aspirin 325mg in the ED. EKG reviewed in the ED showed no ST elevations or depressions. Labs reviewed, negative for elevated troponin, her LFTs were elevated. Orderd for echo, berta q6H x2, next day am labs cbc, cmp, mag, phos, tsh, free t4 , lipid panel, and Hbg a1c. Status: Acute Priority: High (2) Elevated LFTs Assessment and Plan: Most likely an cute phase reactant, Hepatitis panel and abdominal ultrasound. Status: Acute Priority: High (3) DM (diabetes mellitus), type 2, uncontrolled Assessment and Plan: Patient is on Tresiba 90 units daily which is not in formula, spoke with pharmacist who reccomends Lantus 70 units, Novolog 14 units AC, accu checks with sliding scale medium protocol. Janumet 1000-50mg. Held her home Glimipride. follow up morning Hbg a1c. Status: Chronic Priority: High (4) HTN (hypertension) Assessment and Plan: Lisinopril 40mg, continue home Aspirin 81mg Status: Chronic Priority: High (5) Hyperlipidemia Assessment and Plan: Pravastatin 20mg will change to Crestor equivalent, and also Tricor 145mg. Status: Chronic Priority: High (6) Prophylactic measure Assessment and Plan: Heparin 5000 units SC q8H, SCDs Protonix 40mg Status: Acute Priority: Medium
[2017-05-30 07:19] LABS: BASO % 0.7 % (0.0-2.0); EOS # 0.3 K/uL (0.0-0.7); EOS % 4.3 % (0.0-4.0); HEMATOCRIT 42.4 % (34.0-47.0); LYMPH # 1.9 K/uL (1.0-4.3); LYMPH % 28.7 % (20.0-40.0); MEAN CELL VOLUME 87.9 fL (81.0-99.0); MEAN CORPUSCULAR HEMOGLOBIN 29.4 pg (27.0-31.0); MEAN CORPUSCULAR HGB CONC 33.4 g/dL (33.0-37.0); MEAN PLATELET VOLUME 9.5 fL (7.2-11.7); MONO # 0.6 K/uL (0.0-0.8); MONO % 9.7 % (0.0-10.0); RED CELL DISTRIBUTION WIDTH 13.8 % (11.5-14.5); WHITE BLOOD COUNT 6.5 K/uL (4.8-10.8)
[2017-05-30] MEDS ORDERED: (Novolog Mix 70/30) Insulin Aspart/Insulin Aspar 100 units/ml SC SCH (07:30)
[2017-05-30 07:52] LABS: CHLORIDE 100 mmol/L (98-107); POTASSIUM 3.4 mmol/L (3.6-5.2); SODIUM 142 mmol/L (132-148)
[2017-05-30 07:54] LABS: ALB/GLOB RATIO 1.2 (1.0-2.1); ALKALINE PHOSPHATASE 58 U/L (38-126); ALT/SGPT 114 U/L (9-52); AST/SGOT 87 U/L (14-36); BILIRUBIN,TOTAL 0.5 mg/dL (0.2-1.3); BLOOD UREA NITROGEN 15 mg/dL (7-17); CARBON DIOXIDE 28 mmol/L (22-30); CHOLESTEROL 216 mg/dL (0-199); GFR AFRICAN-AMERICAN > 60; GLUCOSE,RANDOM 101 mg/dL (65-105); TOTAL PROTEIN 6.9 g/dL (6.3-8.3)
[2017-05-30 07:55] LABS: CALCIUM 8.7 mg/dl (8.6-10.4); MAGNESIUM 1.7 mg/dL (1.6-2.3); PHOSPHOROUS 3.7 mg/dL (2.5-4.5)
[2017-05-30 08:25] LABS: THYROID STIMULATING HORMONE 1.85 mIU/L (0.46-4.68)
[2017-05-30] MEDS: (Novolin R) Insulin Human Regular 100 units/ml vial SC SCH ×4 (08:42→21:40)
[2017-05-30] MEDS: (Novolog) Insulin Aspart, Recombinant 100 u/ml 10 ml vial SC SCH ×3 (08:43→20:30)
--- NOTE | 2017-05-30 08:45 | CP.PCM.PN ---
<Kiana Taveras - Last Filed: 05/30/17 10:28> Subjective - Date & Time of Evaluation Date of Evaluation: 05/30/17 Time of Evaluation: 08:00 - Subjective Subjective: Medicine Note for Dr. Gordon Patient was seen and examined at bedside. No acute complaints. Denied fever, chills, headache, SOB, chest pain, abdominal pain, n/v/d/c/, or urinary symptoms. Objective - Vital Signs/Intake and Output Vital Signs (last 24 hours): Temp Pulse Resp BP Pulse Ox 97.8 F 71 20 157/85 H 96 05/30/17 08:00 05/30/17 08:00 05/30/17 08:00 05/30/17 08:00 05/30/17 08:00 - Medications Medications: Current Medications Aspirin (Aspirin Chewable) 81 mg PO DAILY [facility] Last Admin: 05/29/17 13:39 Dose: 81 mg Dextrose (Dextrose 50% Inj) 0 ml IV STAT PRN; Protocol PRN Reason: Hyglycemia Protocol Dextrose (Glutose 15) 0 gm PO ONCE PRN; Protocol PRN Reason: Hypoglycemia Protocol Famotidine (Pepcid) 20 mg PO BID [facility] Fenofibrate (Tricor) 145 mg PO DAILY [facility] Heparin Sodium (Porcine) (Heparin) 5,000 units SC Q8 [facility] Last Admin: 05/30/17 05:15 Dose: Not Given Dextrose (Dextrose 5% In Water 1000 Ml) 1,000 mls @ 0 mls/hr IV .Q0M PRN; Protocol; Per Protocol PRN Reason: Hypoglycemia Protocol Insulin Aspart (Novolog) 14 unit SC AC [facility] Last Admin: 05/30/17 08:43 Dose: Not Given Insulin Glargine (Lantus) 70 unit SC HS [facility] Last Admin: 05/29/17 21:31 Dose: 70 units Insulin Human Regular (Novolin R) 0 unit SC ACHS [facility] PRN Reason: Protocol Last Admin: 05/30/17 08:42 Dose: Not Given Isosorbide Mononitrate (Imdur Er) 30 mg PO DAILY [facility] Lisinopril (Zestril) 40 mg PO DAILY [facility] Morphine Sulfate (Morphine) 2 mg IVP Q4H PRN PRN Reason: Pain, severe (8-10) Nitroglycerin (Nitrostat Sl Tab) 0.4 mg SL Q5M PRN PRN Reason: Other Last Admin: 05/29/17 15:00 Dose: 0.4 mg Ondansetron HCl (Zofran Inj) 4 mg IVP Q6 PRN PRN Reason: Nausea/Vomiting Rosuvastatin Calcium (Crestor) 2.5 mg PO HS [facility] Last Admin: 05/29/17 21:31 Dose: 2.5 mg Sitagli[facility]) [facility] Last Admin: 05/30/17 08:42 Dose: 50 mg - Labs Labs: 05/30/17 07:06 05/30/17 07:06 PT 10.8 SECONDS (9.7-12.2) 05/29/17 07:59 INR 1.0 05/29/17 07:59 APTT 32 SECONDS (21-34) 05/29/17 07:59 - Additional Findings Additional findings: - Constitutional Appears: Non-toxic, No Acute Distress - Eye Exam Eye Exam: Normal appearance, PERRL. absent: Nystagmus, Scleral icterus Pupil Exam: NORMAL ACCOMODATION - ENT Exam ENT Exam: Normal Exam - Neck Exam Neck exam: Positive for: Normal Inspection. Negative for: Thyromegaly - Respiratory Exam Respiratory Exam: Clear to Auscultation Bilateral, NORMAL BREATHING PATTERN. absent: Rales, Rhonchi, Wheezes - Cardiovascular Exam Cardiovascular Exam: REGULAR RHYTHM, RRR, +S1 (soft), +S2. absent: Diastolic murmur, Gallop, Irregular Rhythm, Rubs, Systolic Murmur - GI/Abdominal Exam GI & Abdominal Exam: Normal Bowel Sounds, Soft. absent: Guarding, Rebound, Tenderness - Extremities Exam Extremities exam: Positive for: normal inspection. Negative for: calf tenderness, pedal edema, tenderness - Back Exam Back exam: NORMAL INSPECTION. absent: CVA tenderness (L), CVA tenderness (R) - Neurological Exam Neurological exam: Alert, Oriented x3 - Psychiatric Exam Psychiatric exam: Normal Affect, Normal Mood - Skin Skin Exam: Dry, Normal Color, Warm Assessment and Plan - Assessment and Plan (Free Text) Plan: (1) Stable angina Assessment and Plan: * Patient is to be admitted to tele/inpatient, Dr. Cavanaugh Refueling [employer]man consulted. * Morphine 2mg IVP q4h prn for pain, 4mg of Zofran IVP Q6H prn for nausea, Nitro SL as needed for chest pain. * Continue her home Aspirin, she was given Aspirin 325mg in the ED. * EKG reviewed in the ED showed no ST elevations or depressions. * ECHO: LVEF 70%, mild AR * ROMIs- all negative * Tsh, free t4- WNL * As per Dr. Cavanaugh- cardiac cath thursday, patient will be NPO after midnight, thursday night, heparin held thursday night. (2) Elevated LFTs Assessment and Plan: * Most likely an cute phase reactant * Hepatitis panel - negative * abdominal ultrasound- fatty liver (3) DM (diabetes mellitus), type 2, uncontrolled Assessment and Plan: * Patient is on Tresiba 90 units daily which is not in formula, resident spoke with pharmacist who recomends Lantus 70 units, Novolog 14 units AC, * Accu checks with sliding scale medium protocol. * Held Metformin component of Janumet 1000-50mg. * Held her home Glimipride. follow up morning Hbg a1c. (4) HTN (hypertension) Assessment and Plan: * Lisinopril 40mg PO daily * Imdur 30mg PO daily * Aspirin 81mg PO daily (5) Hyperlipidemia Assessment and Plan: * Pravastatin 20mg will change to Crestor equivalent, and also Tricor 145mg PO Daily * T, Chol: 216, LDL: 151, HDL:53 * Will need to monitor her LFTs (6) Prophylactic measure Assessment and Plan: * Heparin 5000 units SC q8H, SCDs * Pepcid 20mg PO BID [facility] Nitin Golden DO, PGY-1 <Renita Gordon V - Last Filed: 05/30/17 13:16> Objective - Vital Signs/Intake and Output Vital Signs (last 24 hours): Temp Pulse Resp BP Pulse Ox 97.8 F 90 20 157/85 H 96 05/30/17 08:00 05/30/17 12:12 05/30/17 08:00 05/30/17 08:00 05/30/17 08:00 - Medications Medications: Current Medications Amlodipine Besylate (Norvasc) 5 mg PO DAILY [facility] Aspirin (Aspirin Chewable) 81 mg PO DAILY [facility] Last Admin: 05/30/17 09:45 Dose: 81 mg Dextrose (Dextrose 50% Inj) 0 ml IV STAT PRN; Protocol PRN Reason: Hyglycemia Protocol Dextrose (Glutose 15) 0 gm PO ONCE PRN; Protocol PRN Reason: Hypoglycemia Protocol Famotidine (Pepcid) 20 mg PO BID [facility] Last Admin: 05/30/17 09:45 Dose: 20 mg Fenofibrate (Tricor) 145 mg PO DAILY [facility] Last Admin: 05/30/17 09:46 Dose: 145 mg Heparin Sodium (Porcine) (Heparin) 5,000 units SC Q8 [facility] Last Admin: 05/30/17 05:15 Dose: Not Given Dextrose (Dextrose 5% In Water 1000 Ml) 1,000 mls @ 0 mls/hr IV .Q0M PRN; Protocol; Per Protocol PRN Reason: Hypoglycemia Protocol Insulin Aspart (Novolog) 14 unit SC AC [facility] Last Admin: 05/30/17 08:43 Dose: Not Given Insulin Glargine (Lantus) 70 unit SC [facility] Last Admin: 05/29/17 21:31 Dose: 70 units Insulin Human Regular (Novolin R) 0 unit SC [facility] PRN Reason: Protocol Last Admin: 05/30/17 08:42 Dose: Not Given Isosorbide Mononitrate (Imdur Er) 30 mg PO DAILY [facility] Last Admin: 05/30/17 09:46 Dose: 30 mg Lisinopril (Zestril) 40 mg PO DAILY [facility] Last Admin: 05/30/17 09:46 Dose: 40 mg Morphine Sulfate (Morphine) 2 mg IVP Q4H PRN PRN Reason: Pain, severe (8-10) Nitroglycerin (Nitrostat Sl Tab) 0.4 mg SL Q5M PRN PRN Reason: Other Last Admin: 05/30/17 12:50 Dose: 0.4 mg Ondansetron HCl (Zofran Inj) 4 mg IVP Q6 PRN PRN Reason: Nausea/Vomiting Rosuvastatin Calcium (Crestor) 2.5 mg PO HS [facility] Last Admin: 05/29/17 21:31 Dose: 2.5 mg [facility]agli[facility]) [facility] Last Admin: 05/30/17 08:42 Dose: 50 mg - Labs Labs: 05/30/17 07:06 05/30/17 07:06 PT 10.8 SECONDS (9.7-12.2) 05/29/17 07:59 INR 1.0 05/29/17 07:59 APTT 32 SECONDS (21-34) 05/29/17 07:59 Attending/Attestation - Attestation I have personally seen and examined this patient.: Yes I have fully participated in the care of the patient.: Yes I have reviewed all pertinent clinical information, including history, physical exam and plan: Yes Notes (Text): Patient seen, examined, and case discussed with day-time resident. Patient seen this afternoon. Patient reports she had chest pain last night which abated with nitroglycerin sublingual tab. Patient at bedside reports she has chest pain at bedside, not as bad as yesterday. Spoke with patient's nurse, Michael to provide patient with nitrosublingual. Ordered for repeat ISSAC and EKG. Patient understands she is going for cardiac cath on Thursday with Dr. Cavanaugh. Per Dr. Cavanaugh, no need for heparin drip/therapuetic lovenox. Reviewed patient's EKGs: appears in normal sinus rhythm X3. ISSAC X3 negative. Mild total CK elevation. Potassium repleted this morning. Will continue to monitor on telemetry. Assessment/Plan (1) Stable angina Assessment and Plan: * Patient is to be admitted to tele/inpatient, Dr. Cavanaugh Refueling [employer]ampman consulted. * Morphine 2mg IVP q4h prn for pain, 4mg of Zofran IVP Q6H prn for nausea, Nitro SL as needed for chest pain. * Continue her home Aspirin, she was given Aspirin 325mg in the ED. * EKG reviewed in the ED showed no ST elevations or depressions. EKGS: NSR: X3 * TroponinX 3: negative * Chest pain which resolves with nitro * 05/29: one episode after admission * 05/30: mild episode at bedside this afternoon-->instructed nurse to give nitro /ISSAC and EKG to followup * F/u echo-->pending * issac q6H x3: negative X3; repeat ISSAC and EKG today * Tsh, free t4, lipid panel, and Hbg a1c. Status: Acute Priority: High (2) Elevated LFTs Assessment and Plan: * Most likely an cute phase reactant, Hepatitis panel and abdominal ultrasound. * Hepatitis panel: negative * Abdominal US (05/29/17): increased echogenicitiy of liver compatible fibro/ fatty infiltration * Patient is on statin-->will need to monitor given consideration for possible CAD/Angina. Status: Acute Priority: Medium (3) DM (diabetes mellitus), type 2, uncontrolled Assessment and Plan: * Patient is on Tresiba 90 units daily which is not in formula, resident spoke with pharmacist who recomends Lantus 70 units, Novolog 14 units AC, * Accu checks with sliding scale medium protocol. * Hgba1c: pending * T, Chol: 216, LDL: 151, HDL:53 * Held Metformin component of Janumet 1000-50mg. * Held her home Glimipride Status: Chronic Priority: High (4) HTN (hypertension) Assessment and Plan: * uncontrolled * Start Norvasc 5mg PO daily * Lisinopril 40mg PO daily * Imdur 30mg PO daily * Aspirin 81mg PO daily Status: Chronic Priority: High (5) Hyperlipidemia Assessment and Plan: * Pravastatin 20mg will change to Crestor equivalent, and also Tricor 145mg PO Daily * Will need to monitor her LFTs Status: Chronic Priority: High (6) Prophylactic measure Assessment and Plan: * Heparin 5000 units SC q8H, SCDs * Pepcid 20mg PO BID * Patient is for cardiac cath on Thursday Disposition: Patient is scheduled for cardiac cath on Thursday with Dr. Cavanaugh. Patient will need to be NPO after midnight (Thursday night into Thursday). patient started on Norvasc for uncontrolled blood pressure. F/u repeat echo and ISSAC.
[2017-05-30] MEDS ORDERED: Pantoprazole 40 mg EC Tab PO SCH (10:00)
[2017-05-30] MEDS ORDERED: Potassium Chloride 20 mEq ER Tab PO ONE (11:00)
--- NOTE | 2017-05-30 20:50 | CP.PCM.PN ---
Subjective - Date & Time of Evaluation Date of Evaluation: 05/30/17 Time of Evaluation: 15:00 - Subjective Subjective: Patient with no cardiac events Review of Systems - Review of Systems All systems: reviewed and no additional remarkable complaints except - Constitutional Constitutional: absent: Chills, Fever, Weakness - EENT Eyes: absent: Change in Vision, Loss of Vision Ears: absent: Dizziness - Cardiovascular Cardiovascular: Chest Pain, Chest Pain at Rest, Chest Pain with Activity, Radiating Pain. absent: Dyspnea, Edema, Lightheadedness, Palpitations - Respiratory Respiratory: absent: Cough, Dyspnea - Gastrointestinal Gastrointestinal: absent: Abdominal Pain, Cramping, Diarrhea, Nausea, Vomiting - Genitourinary Genitourinary: absent: Dysuria - Musculoskeletal Musculoskeletal: Back Pain. absent: Numbness, Tingling - Integumentary Integumentary: absent: Swelling - Neurological Neurological: absent: Dizziness, Numbness, Paresthesias, Tingling, Weakness - Psychiatric Psychiatric: absent: Anxiety - Endocrine Endocrine: absent: Palpitations Physical Exam - Constitutional Appears: Non-toxic, No Acute Distress - Eye Exam Eye Exam: Normal appearance, PERRL. absent: Nystagmus, Scleral icterus Pupil Exam: NORMAL ACCOMODATION - ENT Exam ENT Exam: Normal Exam - Neck Exam Neck exam: Positive for: Normal Inspection. Negative for: Thyromegaly - Respiratory Exam Respiratory Exam: Clear to Auscultation Bilateral, NORMAL BREATHING PATTERN. absent: Rales, Rhonchi, Wheezes - Cardiovascular Exam Cardiovascular Exam: REGULAR RHYTHM, RRR, +S1 (soft), +S2. absent: Diastolic murmur, Gallop, Irregular Rhythm, Rubs, Systolic Murmur - GI/Abdominal Exam GI & Abdominal Exam: Normal Bowel Sounds, Soft. absent: Guarding, Rebound, Tenderness - Extremities Exam Extremities exam: Positive for: normal inspection. Negative for: calf tenderness, pedal edema, tenderness - Back Exam Back exam: NORMAL INSPECTION. absent: CVA tenderness (L), CVA tenderness (R) - Neurological Exam Neurological exam: Alert, Oriented x3 - Psychiatric Exam Psychiatric exam: Normal Affect, Normal Mood - Skin Skin Exam: Dry, Normal Color, Warm Objective - Vital Signs/Intake and Output Vital Signs (last 24 hours): Temp Pulse Resp BP Pulse Ox 99.1 F 82 20 159/73 H 94 L 05/30/17 15:32 05/30/17 16:00 05/30/17 15:32 05/30/17 15:32 05/30/17 15:32 Intake and Output: 05/30/17 05/31/17 18:59 06:59 Intake Total 600 Balance 600 - Medications Medications: Current Medications Amlodipine Besylate (Norvasc) 5 mg PO DAILY [facility] Aspirin (Aspirin Chewable) 81 mg PO DAILY [facility] Last Admin: 05/30/17 09:45 Dose: 81 mg Dextrose (Dextrose 50% Inj) 0 ml IV STAT PRN; Protocol PRN Reason: Hyglycemia Protocol Dextrose (Glutose 15) 0 gm PO ONCE PRN; Protocol PRN Reason: Hypoglycemia Protocol Docusate Sodium (Colace) 100 mg PO TID [facility] Famotidine (Pepcid) 20 mg PO BID [facility] Last Admin: 05/30/17 17:23 Dose: 20 mg Fenofibrate (Tricor) 145 mg PO DAILY [facility] Last Admin: 05/30/17 09:46 Dose: 145 mg Heparin Sodium (Porcine) (Heparin) 5,000 units SC Q8 [facility] Last Admin: 05/30/17 13:31 Dose: Not Given Dextrose (Dextrose 5% In Water 1000 Ml) 1,000 mls @ 0 mls/hr IV .Q0M PRN; Protocol; Per Protocol PRN Reason: Hypoglycemia Protocol Insulin Aspart (Novolog) 14 unit SC AC [facility] Last Admin: 05/30/17 20:30 Dose: Not Given Insulin Glargine (Lantus) 70 unit SC HS [facility] Last Admin: 05/29/17 21:31 Dose: 70 units Insulin Human Regular (Novolin R) 0 unit SC ACHS [facility] PRN Reason: Protocol Last Admin: 05/30/17 17:17 Dose: Not Given Isosorbide Mononitrate (Imdur Er) 30 mg PO DAILY [facility] Last Admin: 05/30/17 09:46 Dose: 30 mg Lisinopril (Zestril) 40 mg PO DAILY [facility] Last Admin: 05/30/17 09:46 Dose: 40 mg Morphine Sulfate (Morphine) 2 mg IVP Q4H PRN PRN Reason: Pain, severe (8-10) Nitroglycerin (Nitrostat Sl Tab) 0.4 mg SL Q5M PRN PRN Reason: Other Last Admin: 05/30/17 12:50 Dose: 0.4 mg Ondansetron HCl (Zofran Inj) 4 mg IVP Q6 PRN PRN Reason: Nausea/Vomiting Rosuvastatin Calcium (Crestor) 2.5 mg PO HS [facility] Last Admin: 05/29/17 21:31 Dose: 2.5 mg Sitagliptin Phosphate (Januvia) 50 mg PO BIDCC [facility] Last Admin: 05/30/17 17:23 Dose: 50 mg - Labs Labs: 05/30/17 07:06 05/30/17 07:06 PT 10.8 SECONDS (9.7-12.2) 05/29/17 07:59 INR 1.0 05/29/17 07:59 APTT 32 SECONDS (21-34) 05/29/17 07:59 Assessment and Plan - Assessment and Plan (Free Text) Assessment: (1) Stable angina Assessment and Plan: * Patient is to be admitted to tele/inpatient, Dr. Cavanaugh Prosthetics Lab Technician consulted. * Morphine 2mg IVP q4h prn for pain, 4mg of Zofran IVP Q6H prn for nausea, Nitro SL as needed for chest pain. * Continue her home Aspirin, she was given Aspirin 325mg in the ED. * EKG reviewed in the ED showed no ST elevations or depressions. * ECHO: LVEF 70%, mild AR * ROMIs- all negative * Tsh, free t4- WNL (2) Elevated LFTs Assessment and Plan: * Most likely an cute phase reactant * Hepatitis panel - negative * abdominal ultrasound- fatty liver (3) DM (diabetes mellitus), type 2, uncontrolled Assessment and Plan: * Patient is on Tresiba 90 units daily which is not in formula, resident spoke with pharmacist who recomends Lantus 70 units, Novolog 14 units AC, * Accu checks with sliding scale medium protocol. * Held Metformin component of Janumet 1000-50mg. * Held her home Glimipride. follow up morning Hbg a1c. (4) HTN (hypertension) Assessment and Plan: * Lisinopril 40mg PO daily * Imdur 30mg PO daily * Aspirin 81mg PO daily (5) Hyperlipidemia Assessment and Plan: * Pravastatin 20mg will change to Crestor equivalent, and also Tricor 145mg PO Daily * T, Chol: 216, LDL: 151, HDL:53 * Will need to monitor her LFTs (6) Prophylactic measure Assessment and Plan: * Heparin 5000 units SC q8H, SCDs * Pepcid 20mg PO BID
[2017-05-30] MEDS: (Lantus) Insulin Glargine, Recombinant SC SCH (21:43)
[2017-05-30] MEDS: Rosuvastatin Calcium 2.5 mg Tab PO SCH (21:43)
[2017-05-31] MEDS: (Novolog) Insulin Aspart, Recombinant 100 u/ml 10 ml vial SC SCH ×3 (07:25→17:30)
[2017-05-31] MEDS: (Novolin R) Insulin Human Regular 100 units/ml vial SC SCH ×4 (07:25→22:32)
[2017-05-31 08:30] LABS: BASO # 0.1 K/uL (0.0-0.2); BASO % 0.8 % (0.0-2.0); EOS # 0.2 K/uL (0.0-0.7); EOS % 2.6 % (0.0-4.0); HEMATOCRIT 43.5 % (34.0-47.0); LYMPH # 1.3 K/uL (1.0-4.3); LYMPH % 16.6 % (20.0-40.0); MEAN CELL VOLUME 87.5 fL (81.0-99.0); MEAN CORPUSCULAR HEMOGLOBIN 29.5 pg (27.0-31.0); MEAN CORPUSCULAR HGB CONC 33.8 g/dL (33.0-37.0); MEAN PLATELET VOLUME 9.4 fL (7.2-11.7); MONO # 0.9 K/uL (0.0-0.8); MONO % 10.8 % (0.0-10.0); NRBC % 0.1 % (0.0-2.0); RED CELL DISTRIBUTION WIDTH 13.7 % (11.5-14.5); WHITE BLOOD COUNT 7.9 K/uL (4.8-10.8)
[2017-05-31 09:00] LABS: CHLORIDE 99 mmol/L (98-107)
[2017-05-31 09:01] LABS: POTASSIUM 3.7 mmol/L (3.6-5.2); SODIUM 141 mmol/L (132-148)
[2017-05-31 09:03] LABS: AST/SGOT 76 U/L (14-36); BILIRUBIN,TOTAL 0.6 mg/dL (0.2-1.3); CARBON DIOXIDE 27 mmol/L (22-30); GFR AFRICAN-AMERICAN > 60
[2017-05-31 09:04] LABS: ALB/GLOB RATIO 1.2 (1.0-2.1); ALKALINE PHOSPHATASE 58 U/L (38-126); ALT/SGPT 111 U/L (9-52); BLOOD UREA NITROGEN 12 mg/dL (7-17); CALCIUM 8.8 mg/dl (8.6-10.4); GLUCOSE,RANDOM 191 mg/dL (65-105); MAGNESIUM 1.7 mg/dL (1.6-2.3); PHOSPHOROUS 4.7 mg/dL (2.5-4.5); TOTAL PROTEIN 6.9 g/dL (6.3-8.3)
--- NOTE | 2017-05-31 11:12 | CP.PCM.PN ---
<Edilberto Betancourt - Last Filed: 05/31/17 11:54> Subjective - Date & Time of Evaluation Date of Evaluation: 05/31/17 Time of Evaluation: 06:20 - Subjective Subjective: PGY-[address] Gordon Patient seen and examined at bedside. Patient reports no acute complaints, anticipating cardiac catheterization in the morning. Patient denies fever, chills, chest pain, dyspnea, abdominal pain, dysuria. Objective - Vital Signs/Intake and Output Vital Signs (last 24 hours): Temp Pulse Resp BP Pulse Ox 97.8 F 77 20 127/66 96 05/31/17 05:31 05/31/17 08:47 05/31/17 05:31 05/31/17 05:31 05/31/17 05:31 - Medications Medications: Current Medications Amlodipine Besylate (Norvasc) 5 mg PO DAILY [facility] Last Admin: 05/31/17 10:27 Dose: 5 mg Aspirin (Aspirin Chewable) 81 mg PO DAILY [facility] Last Admin: 05/31/17 10:27 Dose: 81 mg Dextrose (Dextrose 50% Inj) 0 ml IV STAT PRN; Protocol PRN Reason: Hyglycemia Protocol Dextrose (Glutose 15) 0 gm PO ONCE PRN; Protocol PRN Reason: Hypoglycemia Protocol Docusate Sodium (Colace) 100 mg PO TID [facility] Last Admin: 05/31/17 10:28 Dose: 100 mg Famotidine (Pepcid) 20 mg PO BID [facility] Last Admin: 05/31/17 10:27 Dose: 20 mg Fenofibrate (Tricor) 145 mg PO DAILY [facility] Last Admin: 05/31/17 10:28 Dose: 145 mg Heparin Sodium (Porcine) (Heparin) 5,000 units SC Q8 [facility] Last Admin: 05/31/17 05:32 Dose: Not Given Dextrose (Dextrose 5% In Water 1000 Ml) 1,000 mls @ 0 mls/hr IV .Q0M PRN; Protocol; Per Protocol PRN Reason: Hypoglycemia Protocol Insulin Aspart (Novolog) 14 unit SC AC [facility] Last Admin: 05/31/17 07:25 Dose: Not Given Insulin Glargine (Lantus) 70 unit SC HS [facility] Last Admin: 05/30/17 21:43 Dose: 70 units Insulin Human Regular (Novolin R) 0 unit SC ACHS [facility] PRN Reason: Protocol Last Admin: 05/31/17 07:25 Dose: Not Given Isosorbide Mononitrate (Imdur Er) 30 mg PO DAILY [facility] Last Admin: 05/31/17 10:27 Dose: 30 mg Lisinopril (Zestril) 40 mg PO DAILY [facility] Last Admin: 05/31/17 10:28 Dose: 40 mg Morphine Sulfate (Morphine) 2 mg IVP Q4H PRN PRN Reason: Pain, severe (8-10) Nitroglycerin (Nitrostat Sl Tab) 0.4 mg SL Q5M PRN PRN Reason: Other Last Admin: 05/30/17 12:50 Dose: 0.4 mg Ondansetron HCl (Zofran Inj) 4 mg IVP Q6 PRN PRN Reason: Nausea/Vomiting Rosuvastatin Calcium (Crestor) 2.5 mg PO HS [facility] Last Admin: 05/30/17 21:43 Dose: 2.5 mg Sitagliptin Phosphate (Januvia) 50 mg PO BIDCC [facility] Last Admin: 05/31/17 08:39 Dose: 50 mg - Labs Labs: 05/31/17 08:21 05/31/17 08:27 PT 10.8 SECONDS (9.7-12.2) 05/29/17 07:59 INR 1.0 05/29/17 07:59 APTT 32 SECONDS (21-34) 05/29/17 07:59 - Constitutional Appears: No Acute Distress - Head Exam Head Exam: ATRAUMATIC, NORMOCEPHALIC - Eye Exam Eye Exam: EOMI, PERRL - ENT Exam ENT Exam: Mucous Membranes Moist - Respiratory Exam Respiratory Exam: Clear to Ausculation Bilateral. absent: Rales, Rhonchi, Wheezes - Cardiovascular Exam Cardiovascular Exam: REGULAR RHYTHM, +S1, +S2 - GI/Abdominal Exam GI & Abdominal Exam: Soft, Normal Bowel Sounds. absent: Distended, Tenderness - Extremities Exam Extremities Exam: absent: Calf Tenderness, Pedal Edema - Neurological Exam Neurological Exam: Alert, Awake, Oriented x3 - Psychiatric Exam Psychiatric exam: Normal Affect, Normal Mood - Skin Skin Exam: Dry, Intact, Normal Color, Warm Assessment and Plan - Assessment and Plan (Free Text) Plan: (1) Stable angina Assessment and Plan: * Patient is to be admitted to tele/inpatient, Dr. Cavanaugh Drawing Box Tender consulted. * Morphine 2mg IVP q4h prn for pain, 4mg of Zofran IVP Q6H prn for nausea, Nitro SL as needed for chest pain. * Continue her home Aspirin, she was given Aspirin 325mg in the ED. * EKG reviewed in the ED showed no ST elevations or depressions. * ECHO: LVEF 70%, mild AR * ROMIs- all negative * Tsh, free t4- WNL * As per Dr. Cavanaugh- cardiac cath thursday, patient will be NPO after midnight, thursday night, heparin held thursday night. (2) Elevated LFTs Assessment and Plan: * Most likely an cute phase reactant * Hepatitis panel - negative * abdominal ultrasound- fatty liver (3) DM (diabetes mellitus), type 2, uncontrolled Assessment and Plan: * Patient is on Tresiba 90 units daily which is not in formula, resident spoke with pharmacist who recommends Lantus 70 units, Novolog 14 units AC, * Accu checks with sliding scale medium protocol. * Held Metformin component of Janumet 1000-50mg. * Held her home Glimipride. follow up morning Hbg a1c. (4) HTN (hypertension) Assessment and Plan: * Lisinopril 40mg PO daily * Imdur 30mg PO daily * Aspirin 81mg PO daily (5) Hyperlipidemia Assessment and Plan: * Pravastatin 20mg will change to Crestor equivalent, and also Tricor 145mg PO Daily * T, Chol: 216, LDL: 151, HDL:53 * Will need to monitor her LFTs (6) Prophylactic measure Assessment and Plan: * Heparin 5000 units SC q8H, SCDs * Pepcid 20mg PO BID Will discuss case with Dr. Evan Betancourt PGY-1 <Renita Gordon V - Last Filed: 05/31/17 17:10> Objective - Vital Signs/Intake and Output Vital Signs (last 24 hours): Temp Pulse Resp BP Pulse Ox 98 F 98 H 20 131/55 L 95 05/31/17 15:00 05/31/17 16:00 05/31/17 15:00 05/31/17 15:00 05/31/17 15:00 Intake and Output: 05/31/17 05/31/17 06:59 18:59 Intake Total 600 Balance 600 - Medications Medications: Current Medications Amlodipine Besylate (Norvasc) 5 mg PO DAILY [facility] Last Admin: 05/31/17 10:27 Dose: 5 mg Aspirin (Aspirin Chewable) 81 mg PO DAILY [facility] Last Admin: 05/31/17 10:27 Dose: 81 mg Dextrose (Dextrose 50% Inj) 0 ml IV STAT PRN; Protocol PRN Reason: Hyglycemia Protocol Dextrose (Glutose 15) 0 gm PO ONCE PRN; Protocol PRN Reason: Hypoglycemia Protocol Docusate Sodium (Colace) 100 mg PO TID [facility] Last Admin: 05/31/17 13:50 Dose: 100 mg Famotidine (Pepcid) 20 mg PO BID [facility] Last Admin: 05/31/17 10:27 Dose: 20 mg Fenofibrate (Tricor) 145 mg PO DAILY [facility] Last Admin: 05/31/17 10:28 Dose: 145 mg Heparin Sodium (Porcine) (Heparin) 5,000 units SC Q8 [facility] Last Admin: 05/31/17 14:38 Dose: Not Given Dextrose (Dextrose 5% In Water 1000 Ml) 1,000 mls @ 0 mls/hr IV .Q0M PRN; Protocol; Per Protocol PRN Reason: Hypoglycemia Protocol Insulin Aspart (Novolog) 14 unit SC AC [facility] Last Admin: 05/31/17 12:42 Dose: 14 unit Insulin Glargine (Lantus) 35 unit SC HS [facility] Insulin Human Regular (Novolin R) 0 unit SC ACHS [facility] PRN Reason: Protocol Last Admin: 05/31/17 12:30 Dose: Not Given Isosorbide Mononitrate (Imdur Er) 30 mg PO DAILY [facility] Last Admin: 05/31/17 10:27 Dose: 30 mg Lisinopril (Zestril) 40 mg PO DAILY [facility] Last Admin: 05/31/17 10:28 Dose: 40 mg Morphine Sulfate (Morphine) 2 mg IVP Q4H PRN PRN Reason: Pain, severe (8-10) Nitroglycerin (Nitrostat Sl Tab) 0.4 mg SL Q5M PRN PRN Reason: Other Last Admin: 05/30/17 12:50 Dose: 0.4 mg Ondansetron HCl (Zofran Inj) 4 mg IVP Q6 PRN PRN Reason: Nausea/Vomiting Rosuvastatin Calcium (Crestor) 2.5 mg PO HS [facility] Last Admin: 05/30/17 21:43 Dose: 2.5 mg Sitagliptin Phosphate (Januvia) 50 mg PO BIDCC [facility] Last Admin: 05/31/17 08:39 Dose: 50 mg - Labs Labs: 05/31/17 08:21 05/31/17 08:27 PT 10.8 SECONDS (9.7-12.2) 05/29/17 07:59 INR 1.0 05/29/17 07:59 APTT 32 SECONDS (21-34) 05/29/17 07:59 Attending/Attestation - Attestation I have personally seen and examined this patient.: Yes I have fully participated in the care of the patient.: Yes I have reviewed all pertinent clinical information, including history, physical exam and plan: Yes Notes (Text): Patient seen, examined, and case discussed with day-time resident. Patient seen this afternoon. Patient reports she had chest pain last night which abated with nitroglycerin sublingual tab. Patient denies acute complaints. Patient reports she had a bowel movement following the colace and lactulose. Patient had been refusing dvt ppx does not like getting stuck. Allowed for dose today prior to cath tomorrow. Pending hgba1c. Patient understands she is going for cardiac cath on Thursday with Dr. Cavanaugh. Per Dr. Cavanaugh, no need for heparin drip/therapuetic lovenox. Reviewed patient's EKGs: appears in normal sinus rhythm X3. ISSAC X3 negative. Mild total CK elevation. Will provide 1/2 dose of Lantus tonight because she is going for catherization-- >she will need full dose (lantus 70 subHS) resumed post-catherization barring any further special procedures. Heparin dvt held after tonight for cath in AM NPO for tomorrow for cardiac cath with Dr. Cavanaugh. Pending echocardiogram Will continue to monitor on telemetry. Assessment/Plan (1) Stable angina Assessment and Plan: * Patient is to be admitted to tele/inpatient, Dr. Cavanaugh Drawing Box Tender consulted. * Morphine 2mg IVP q4h prn for pain, 4mg of Zofran IVP Q6H prn for nausea, Nitro SL as needed for chest pain. * Continue her home Aspirin, she was given Aspirin 325mg in the ED. * EKG reviewed in the ED showed no ST elevations or depressions. EKGS: NSR: X3 * TroponinX 3: negative * Chest pain which resolves with nitro * 05/29: one episode after admission * 05/30: mild episode at bedside this afternoon-->instructed nurse to give nitro /ISSAC and EKG to followup * 05/31: denies chest pain * F/u echo-->pending * issac q6H x3: negative X3 * Tsh, free t4, lipid panel, and Hbg a1c. Status: Acute Priority: High (2) Elevated LFTs Assessment and Plan: * Most likely an cute phase reactant, Hepatitis panel and abdominal ultrasound. * Hepatitis panel: negative * Abdominal US (05/29/17): increased echogenicitiy of liver compatible fibro/ fatty infiltration * Patient is on statin-->will need to monitor given consideration for possible CAD/Angina. Status: Acute Priority: Medium (3) DM (diabetes mellitus), type 2, uncontrolled Assessment and Plan: * Patient is on Tresiba 90 units daily which is not in formula, resident spoke with pharmacist who recommends Lantus 70 units, Novolog 14 units AC * 05/31: to give 1/2 dose of tank terminal gauger insulin over night in preparation for cardiac cath in AM * Accu checks with sliding scale medium protocol. * Hgba1c: pending * T, Chol: 216, LDL: 151, HDL:53 * Held Metformin component of Janumet 1000-50mg. * Held her home Glimipride Status: Chronic Priority: High (4) HTN (hypertension) Assessment and Plan: * uncontrolled * d/c Norvasc 5mg PO daily-->start low dose Lopressor 12.5mg PO bid * Lisinopril 40mg PO daily * Imdur 30mg PO daily * Aspirin 81mg PO daily Status: Chronic Priority: High (5) Hyperlipidemia Assessment and Plan: * Pravastatin 20mg will change to Crestor equivalent, and also Tricor 145mg PO Daily * Will need to monitor her LFTs Status: Chronic Priority: High (6) Prophylactic measure Assessment and Plan: * hold Heparin 5000 units SC q8H for anticipated cath tomorrow, SCDs * Pepcid 20mg PO BID * Patient is for cardiac cath on Thursday Disposition: Patient is scheduled for cardiac cath on Good with Dr. Cavanaugh. Patient will need to be NPO after midnight (Thursday night into Thursday). Switched Norvasc to Lopressor for better blood pressure control. To provided 1/2 Lantus evening dose in preparation for cath tomorrow.
[2017-05-31] MEDS ORDERED: (Lantus) Insulin Glargine, Recombinant SC SCH (17:03)
--- NOTE | 2017-05-31 21:42 | CP.PCM.PN ---
Subjective - Date & Time of Evaluation Date of Evaluation: 05/31/17 Time of Evaluation: 17:30 - Subjective Subjective: Patient seen and evaluated Comfortable and not in distress Physical examination - Constitutional Appears: No Acute Distress - Head Exam Head Exam: ATRAUMATIC, NORMOCEPHALIC - Eye Exam Eye Exam: EOMI, PERRL - ENT Exam ENT Exam: Mucous Membranes Moist - Respiratory Exam Respiratory Exam: Clear to Ausculation Bilateral. absent: Rales, Rhonchi, Wheezes - Cardiovascular Exam Cardiovascular Exam: REGULAR RHYTHM, +S1, +S2 - GI/Abdominal Exam GI & Abdominal Exam: Soft, Normal Bowel Sounds. absent: Distended, Tenderness - Extremities Exam Extremities Exam: absent: Calf Tenderness, Pedal Edema - Neurological Exam Neurological Exam: Alert, Awake, Oriented x3 - Psychiatric Exam Psychiatric exam: Normal Affect, Normal Mood - Skin Skin Exam: Dry, Intact, Normal Color, Warm Objective - Vital Signs/Intake and Output Vital Signs (last 24 hours): Temp Pulse Resp BP Pulse Ox 98 F 98 H 20 131/55 L 95 05/31/17 15:00 05/31/17 16:00 05/31/17 15:00 05/31/17 15:00 05/31/17 15:00 Intake and Output: 05/31/17 06/01/17 18:59 06:59 Intake Total 600 Balance 600 - Medications Medications: Current Medications Aspirin (Aspirin Chewable) 81 mg PO DAILY [facility] Last Admin: 05/31/17 10:27 Dose: 81 mg Dextrose (Dextrose 50% Inj) 0 ml IV STAT PRN; Protocol PRN Reason: Hyglycemia Protocol Dextrose (Glutose 15) 0 gm PO ONCE PRN; Protocol PRN Reason: Hypoglycemia Protocol Docusate Sodium (Colace) 100 mg PO TID [facility] Last Admin: 05/31/17 17:29 Dose: 100 mg Famotidine (Pepcid) 20 mg PO BID [facility] Last Admin: 05/31/17 17:29 Dose: 20 mg Fenofibrate (Tricor) 145 mg PO DAILY [facility] Last Admin: 05/31/17 10:28 Dose: 145 mg Heparin Sodium (Porcine) (Heparin) 5,000 units SC Q8 [facility] Last Admin: 05/31/17 14:38 Dose: Not Given Dextrose (Dextrose 5% In Water 1000 Ml) 1,000 mls @ 0 mls/hr IV .Q0M PRN; Protocol; Per Protocol PRN Reason: Hypoglycemia Protocol Insulin Aspart (Novolog) 14 unit SC AC [facility] Last Admin: 05/31/17 17:30 Dose: 14 unit Insulin Glargine (Lantus) 35 unit SC Q24H [facility] Insulin Human Regular (Novolin R) 0 unit SC ACHS [facility] PRN Reason: Protocol Last Admin: 05/31/17 12:30 Dose: Not Given Isosorbide Mononitrate (Imdur Er) 30 mg PO DAILY [facility] Last Admin: 05/31/17 10:27 Dose: 30 mg Lisinopril (Zestril) 40 mg PO DAILY [facility] Last Admin: 05/31/17 10:28 Dose: 40 mg Metoprolol Tartrate (Lopressor) 12.5 mg PO Q12 [facility] Morphine Sulfate (Morphine) 2 mg IVP Q4H PRN PRN Reason: Pain, severe (8-10) Nitroglycerin (Nitrostat Sl Tab) 0.4 mg SL Q5M PRN PRN Reason: Other Last Admin: 05/30/17 12:50 Dose: 0.4 mg Ondansetron HCl (Zofran Inj) 4 mg IVP Q6 PRN PRN Reason: Nausea/Vomiting Rosuvastatin Calcium (Crestor) 2.5 mg PO HS [facility] Last Admin: 05/30/17 21:43 Dose: 2.5 mg Sitagliptin Phosphate (Januvia) 50 mg PO BIDCC [facility] Last Admin: 05/31/17 08:39 Dose: 50 mg - Labs Labs: 05/31/17 08:21 05/31/17 08:27 PT 10.8 SECONDS (9.7-12.2) 05/29/17 07:59 INR 1.0 05/29/17 07:59 APTT 32 SECONDS (21-34) 05/29/17 07:59 Assessment and Plan - Assessment and Plan (Free Text) Assessment: (1) Stable angina Assessment and Plan: * Patient is to be admitted to tele/inpatient, Dr. Cavanaugh Set Decorator consulted. * Morphine 2mg IVP q4h prn for pain, 4mg of Zofran IVP Q6H prn for nausea, Nitro SL as needed for chest pain. * Continue her home Aspirin, she was given Aspirin 325mg in the ED. * EKG reviewed in the ED showed no ST elevations or depressions. * ECHO: LVEF 70%, mild AR * ROMIs- all negative * Tsh, free t4- WNL * Cardiac cath tomorrow (2) Elevated LFTs Assessment and Plan: * Most likely an cute phase reactant * Hepatitis panel - negative * abdominal ultrasound- fatty liver (3) DM (diabetes mellitus), type 2, uncontrolled Assessment and Plan: * Patient is on Tresiba 90 units daily which is not in formula, resident spoke with pharmacist who recommends Lantus 70 units, Novolog 14 units AC, * Accu checks with sliding scale medium protocol. * Held Metformin component of Janumet 1000-50mg. * Held her home Glimipride. follow up morning Hbg a1c. (4) HTN (hypertension) Assessment and Plan: * Lisinopril 40mg PO daily * Imdur 30mg PO daily * Aspirin 81mg PO daily (5) Hyperlipidemia Assessment and Plan: * Pravastatin 20mg will change to Crestor equivalent, and also Tricor 145mg PO Daily * T, Chol: 216, LDL: 151, HDL:53 * Will need to monitor her LFTs (6) Prophylactic measure Assessment and Plan: * Heparin 5000 units SC q8H, SCDs * Pepcid 20mg PO BID
[2017-05-31] MEDS: Rosuvastatin Calcium 2.5 mg Tab PO SCH (22:39)
[2017-06-01 07:26] LABS: BASO # 0.1 K/uL (0.0-0.2); BASO % 1.1 % (0.0-2.0); EOS # 0.4 K/uL (0.0-0.7); HEMATOCRIT 45.5 % (34.0-47.0); LYMPH # 1.8 K/uL (1.0-4.3); LYMPH % 25.8 % (20.0-40.0); MEAN CELL VOLUME 88.1 fL (81.0-99.0); MEAN CORPUSCULAR HEMOGLOBIN 29.4 pg (27.0-31.0); MEAN CORPUSCULAR HGB CONC 33.4 g/dL (33.0-37.0); MEAN PLATELET VOLUME 9.7 fL (7.2-11.7); MONO # 0.8 K/uL (0.0-0.8); MONO % 11.1 % (0.0-10.0); NRBC % 0.1 % (0.0-2.0); RED CELL DISTRIBUTION WIDTH 13.7 % (11.5-14.5); WHITE BLOOD COUNT 7.1 K/uL (4.8-10.8)
[2017-06-01 07:54] LABS: ALB/GLOB RATIO 1.3 (1.0-2.1); ALKALINE PHOSPHATASE 56 U/L (38-126); ALT/SGPT 106 U/L (9-52); AST/SGOT 61 U/L (14-36); BILIRUBIN,TOTAL 0.5 mg/dL (0.2-1.3); BLOOD UREA NITROGEN 15 mg/dL (7-17); CALCIUM 9.3 mg/dl (8.6-10.4); CARBON DIOXIDE 29 mmol/L (22-30); CHLORIDE 100 mmol/L (98-107); GFR AFRICAN-AMERICAN > 60; GLUCOSE,RANDOM 143 mg/dL (65-105); MAGNESIUM 1.9 mg/dL (1.6-2.3); POTASSIUM 3.6 mmol/L (3.6-5.2); SODIUM 139 mmol/L (132-148); TOTAL PROTEIN 6.9 g/dL (6.3-8.3)
--- NOTE | 2017-06-01 08:34 | CP.PCM.PN ---
<Kiana Taveras - Last Filed: 06/01/17 15:39> Subjective - Date & Time of Evaluation Date of Evaluation: 06/01/17 Time of Evaluation: 08:00 - Subjective Subjective: Medicine Note for Dr. Abel Khan Patient seen and examined at bedside. Patient reports no acute complaints, anticipating cardiac catheterization today at 1pm. Patient denies fever, chills , chest pain, dyspnea, abdominal pain, dysuria. Objective - Vital Signs/Intake and Output Vital Signs (last 24 hours): Temp Pulse Resp BP Pulse Ox 98.4 F 56 L 20 138/76 95 05/31/17 23:00 06/01/17 03:58 05/31/17 23:00 05/31/17 23:00 05/31/17 23:00 - Medications Medications: Current Medications Aspirin (Aspirin Chewable) 81 mg PO DAILY [facility] Last Admin: 05/31/17 10:27 Dose: 81 mg Dextrose (Dextrose 50% Inj) 0 ml IV STAT PRN; Protocol PRN Reason: Hyglycemia Protocol Dextrose (Glutose 15) 0 gm PO ONCE PRN; Protocol PRN Reason: Hypoglycemia Protocol Docusate Sodium (Colace) 100 mg PO TID [facility] Last Admin: 05/31/17 17:29 Dose: 100 mg Famotidine (Pepcid) 20 mg PO BID [facility] Last Admin: 05/31/17 17:29 Dose: 20 mg Fenofibrate (Tricor) 145 mg PO DAILY [facility] Last Admin: 05/31/17 10:28 Dose: 145 mg Heparin Sodium (Porcine) (Heparin) 5,000 units SC Q8 [facility] Last Admin: 05/31/17 14:38 Dose: Not Given Dextrose (Dextrose 5% In Water 1000 Ml) 1,000 mls @ 0 mls/hr IV .Q0M PRN; Protocol; Per Protocol PRN Reason: Hypoglycemia Protocol Insulin Aspart (Novolog) 14 unit SC AC [facility] Last Admin: 05/31/17 17:30 Dose: 14 unit Insulin Glargine (Lantus) 35 unit SC Q24H [facility] Last Admin: 05/31/17 22:06 Dose: 35 u Insulin Human Regular (Novolin R) 0 unit SC ACHS [facility] PRN Reason: Protocol Last Admin: 05/31/17 22:32 Dose: Not Given Isosorbide Mononitrate (Imdur Er) 30 mg PO DAILY [facility] Last Admin: 05/31/17 10:27 Dose: 30 mg Lisinopril (Zestril) 40 mg PO DAILY [facility] Last Admin: 05/31/17 10:28 Dose: 40 mg Metoprolol Tartrate (Lopressor) 12.5 mg PO Q12 [facility] Last Admin: 05/31/17 22:39 Dose: 12.5 mg Morphine Sulfate (Morphine) 2 mg IVP Q4H PRN PRN Reason: Pain, severe (8-10) Nitroglycerin (Nitrostat Sl Tab) 0.4 mg SL Q5M PRN PRN Reason: Other Last Admin: 05/30/17 12:50 Dose: 0.4 mg Ondansetron HCl (Zofran Inj) 4 mg IVP Q6 PRN PRN Reason: Nausea/Vomiting Rosuvastatin Calcium (Crestor) 2.5 mg PO HS [facility] Last Admin: 05/31/17 22:39 Dose: 2.5 mg Sitagliptin Phosphate (Januvia) 50 mg PO BIDCC [facility] Last Admin: 06/01/17 07:50 Dose: Not Given - Labs Labs: 06/01/17 07:05 06/01/17 07:05 PT 10.8 SECONDS (9.7-12.2) 05/29/17 07:59 INR 1.0 05/29/17 07:59 APTT 32 SECONDS (21-34) 05/29/17 07:59 - Additional Findings Additional findings: - Constitutional Appears: No Acute Distress - Head Exam Head Exam: ATRAUMATIC, NORMOCEPHALIC - Eye Exam Eye Exam: EOMI, PERRL - ENT Exam ENT Exam: Mucous Membranes Moist - Respiratory Exam Respiratory Exam: Clear to Ausculation Bilateral. absent: Rales, Rhonchi, Wheezes - Cardiovascular Exam Cardiovascular Exam: REGULAR RHYTHM, +S1, +S2 - GI/Abdominal Exam GI & Abdominal Exam: Soft, Normal Bowel Sounds. absent: Distended, Tenderness - Extremities Exam Extremities Exam: absent: Calf Tenderness, Pedal Edema - Neurological Exam Neurological Exam: Alert, Awake, Oriented x3 - Psychiatric Exam Psychiatric exam: Normal Affect, Normal Mood - Skin Skin Exam: Dry, Intact, Normal Color, Warm Assessment and Plan - Assessment and Plan (Free Text) Plan: Stable angina Assessment and Plan: * Patient is to be admitted to tele/inpatient, Dr. Cavanaugh Manager [employer] consulted. * Morphine 2mg IVP q4h prn for pain, 4mg of Zofran IVP Q6H prn for nausea, Nitro SL as needed for chest pain. * Continue her home Aspirin, she was given Aspirin 325mg in the ED. * EKG reviewed in the ED showed no ST elevations or depressions. EKGS: NSR: X3 * TroponinX 3: negative * Chest pain which resolves with nitro * 05/29: one episode after admission * 05/30: mild episode at bedside this afternoon-->instructed nurse to give nitro /ISSAC and EKG to followup * 05/31: denies chest pain * Tsh, free t4, lipid panel- WNL * Cardiac cath today with Dr. Cavanaugh, discharge tomorrow morning. Elevated LFTs Assessment and Plan: * Most likely an cute phase reactant, Hepatitis panel and abdominal ultrasound. * Hepatitis panel: negative * Abdominal US (05/29/17): increased echogenicitiy of liver compatible fibro/ fatty infiltration * Patient is on statin-->will need to monitor given consideration for possible CAD/Angina. Will instruct patient to take every other day. DM (diabetes mellitus), type 2, uncontrolled Assessment and Plan: * Patient is on Tresiba 90 units daily which is not in formula, resident spoke with pharmacist who recommends Lantus 70 units, Novolog 14 units AC * 05/31: to give 1/2 dose of detention insulin over night in preparation for cardiac cath in AM * Accu checks with sliding scale medium protocol. * Hgba1c: 11.8 * T, Chol: 216, LDL: 151, HDL:53 * Held Metformin component of Janumet 1000-50mg * Held her home Glimipride HTN (hypertension) Assessment and Plan: * uncontrolled * d/c Norvasc 5mg PO daily-->start low dose Lopressor 12.5mg PO bid * Lisinopril 40mg PO daily * Imdur 30mg PO daily * Aspirin 81mg PO daily Hyperlipidemia Assessment and Plan: * Pravastatin 20mg will change to Crestor equivalent, and also Tricor 145mg PO Daily * Will need to monitor her LFTs Prophylactic measure Assessment and Plan: * hold Heparin 5000 units SC q8H for anticipated cath tomorrow, SCDs * Pepcid 20mg PO BID Disposition: Patient is scheduled for cardiac cath on Thursday today at 1pm. DW Nitin Mir DO, PGY-1 <Can Khan - Last Filed: 06/01/17 18:48> Objective - Vital Signs/Intake and Output Vital Signs (last 24 hours): Temp Pulse Resp BP Pulse Ox 98.1 F 59 L 20 100/64 96 06/01/17 15:00 06/01/17 15:30 06/01/17 15:00 06/01/17 15:00 06/01/17 15:00 - Medications Medications: Current Medications Aspirin (Aspirin Chewable) 81 mg PO DAILY [facility] Last Admin: 06/01/17 10:21 Dose: Not Given Dextrose (Dextrose 50% Inj) 0 ml IV STAT PRN; Protocol PRN Reason: Hyglycemia Protocol Dextrose (Glutose 15) 0 gm PO ONCE PRN; Protocol PRN Reason: Hypoglycemia Protocol Docusate Sodium (Colace) 100 mg PO TID [facility] Last Admin: 06/01/17 17:42 Dose: 100 mg Famotidine (Pepcid) 20 mg PO BID [facility] Last Admin: 06/01/17 17:42 Dose: 20 mg Fenofibrate (Tricor) 145 mg PO DAILY [facility] Last Admin: 06/01/17 10:22 Dose: Not Given Heparin Sodium (Porcine) (Heparin) 5,000 units SC Q8 [facility] Last Admin: 05/31/17 14:38 Dose: Not Given Dextrose (Dextrose 5% In Water 1000 Ml) 1,000 mls @ 0 mls/hr IV .Q0M PRN; Protocol; Per Protocol PRN Reason: Hypoglycemia Protocol Insulin Aspart (Novolog) 14 unit SC AC [facility] Last Admin: 05/31/17 17:30 Dose: 14 unit Insulin Glargine (Lantus) 20 unit SC HS [facility] Insulin Human Regular (Novolin R) 0 unit SC ACHS [facility] PRN Reason: Protocol Last Admin: 05/31/17 22:32 Dose: Not Given Isosorbide Mononitrate (Imdur Er) 30 mg PO DAILY [facility] Last Admin: 06/01/17 10:22 Dose: Not Given Lisinopril (Zestril) 40 mg PO DAILY [facility] Last Admin: 06/01/17 10:22 Dose: Not Given Metoprolol Tartrate (Lopressor) 12.5 mg PO Q12 [facility] Last Admin: 06/01/17 10:22 Dose: Not Given Morphine Sulfate (Morphine) 2 mg IVP Q4H PRN PRN Reason: Pain, severe (8-10) Nitroglycerin (Nitrostat Sl Tab) 0.4 mg SL Q5M PRN PRN Reason: Other Last Admin: 05/30/17 12:50 Dose: 0.4 mg Ondansetron HCl (Zofran Inj) 4 mg IVP Q6 PRN PRN Reason: Nausea/Vomiting Rosuvastatin Calcium (Crestor) 2.5 mg PO HS [facility] Last Admin: 05/31/17 22:39 Dose: 2.5 mg Sitagliptin Phosphate (Januvia) 50 mg PO BIDCC [facility] Last Admin: 06/01/17 17:42 Dose: 50 mg - Labs Labs: 06/01/17 07:05 06/01/17 07:05 PT 10.8 SECONDS (9.7-12.2) 05/29/17 07:59 INR 1.0 05/29/17 07:59 APTT 32 SECONDS (21-34) 05/29/17 07:59 Attending/Attestation - Attestation I have personally seen and examined this patient.: Yes I have fully participated in the care of the patient.: Yes I have reviewed all pertinent clinical information, including history, physical exam and plan: Yes Notes (Text): 06/01/17 18:48 Patient was seen and examined at 9:30 AM 06/01/17 Exam, assessment and plan were thoroughly gone over with the resident. Can Khan D.O.
[2017-06-01] MEDS ORDERED: Midazolam 2 MG/2 ML VIAL ONE (11:02)
[2017-06-01] MEDS ORDERED: Iodixanol 320 MG/ML 100 ML BOTTLE IV ONE (12:19)
[2017-06-01] MEDS ORDERED: (Lantus) Insulin Glargine, Recombinant SC SCH (22:00)
[2017-06-01] MEDS: Rosuvastatin Calcium 2.5 mg Tab PO SCH (22:13)
[2017-06-01] MEDS: (Novolin R) Insulin Human Regular 100 units/ml vial SC SCH (22:19)
--- NOTE | 2017-06-01 22:34 | CP.PCM.PN ---
Subjective - Date & Time of Evaluation Date of Evaluation: 06/01/17 Time of Evaluation: 19:35 - Subjective Subjective: patient s/p cath Non obstructive coronaries Normal EF Medical management Objective - Vital Signs/Intake and Output Vital Signs (last 24 hours): Temp Pulse Resp BP Pulse Ox 98.1 F 72 20 119/64 96 06/01/17 15:00 06/01/17 22:13 06/01/17 15:00 06/01/17 22:13 06/01/17 15:00 - Medications Medications: Current Medications Aspirin (Aspirin Chewable) 81 mg PO DAILY [facility] Last Admin: 06/01/17 10:21 Dose: Not Given Dextrose (Dextrose 50% Inj) 0 ml IV STAT PRN; Protocol PRN Reason: Hyglycemia Protocol Dextrose (Glutose 15) 0 gm PO ONCE PRN; Protocol PRN Reason: Hypoglycemia Protocol Docusate Sodium (Colace) 100 mg PO TID [facility] Last Admin: 06/01/17 17:42 Dose: 100 mg Famotidine (Pepcid) 20 mg PO BID [facility] Last Admin: 06/01/17 17:42 Dose: 20 mg Fenofibrate (Tricor) 145 mg PO DAILY [facility] Last Admin: 06/01/17 10:22 Dose: Not Given Heparin Sodium (Porcine) (Heparin) 5,000 units SC Q8 [facility] Last Admin: 05/31/17 14:38 Dose: Not Given Dextrose (Dextrose 5% In Water 1000 Ml) 1,000 mls @ 0 mls/hr IV .Q0M PRN; Protocol; Per Protocol PRN Reason: Hypoglycemia Protocol Insulin Aspart (Novolog) 14 unit SC AC [facility] Last Admin: 05/31/17 17:30 Dose: 14 unit Insulin Glargine (Lantus) 20 unit SC HS [facility] Last Admin: 06/01/17 22:14 Dose: 20 units Insulin Human Regular (Novolin R) 0 unit SC ACHS [facility] PRN Reason: Protocol Last Admin: 06/01/17 22:19 Dose: 2 unit Isosorbide Mononitrate (Imdur Er) 30 mg PO DAILY [facility] Last Admin: 06/01/17 10:22 Dose: Not Given Lisinopril (Zestril) 40 mg PO DAILY [facility] Last Admin: 06/01/17 10:22 Dose: Not Given Metoprolol Tartrate (Lopressor) 12.5 mg PO Q12 [facility] Last Admin: 06/01/17 22:13 Dose: 12.5 mg Morphine Sulfate (Morphine) 2 mg IVP Q4H PRN PRN Reason: Pain, severe (8-10) Nitroglycerin (Nitrostat Sl Tab) 0.4 mg SL Q5M PRN PRN Reason: Other Last Admin: 05/30/17 12:50 Dose: 0.4 mg Ondansetron HCl (Zofran Inj) 4 mg IVP Q6 PRN PRN Reason: Nausea/Vomiting Rosuvastatin Calcium (Crestor) 2.5 mg PO HS [facility] Last Admin: 06/01/17 22:13 Dose: 2.5 mg [facility]agli[facility] ([facility]) [facility] Last Admin: 06/01/17 17:42 Dose: 50 mg - Labs Labs: 06/01/17 07:05 06/01/17 07:05 PT 10.8 SECONDS (9.7-12.2) 05/29/17 07:59 INR 1.0 05/29/17 07:59 APTT 32 SECONDS (21-34) 05/29/17 07:59
--- NOTE | 2017-06-02 07:25 | CP.PCM.DIS ---
<Kiana Taveras - Last Filed: 06/02/17 10:38> Provider - Provider Date of Admission: 05/29/17 10:23 Attending physician: Can Khan MD Consults: Cardio: Mao Time Spent in preparation of Discharge (in minutes): 55 Hospital Course - Lab Results Lab Results: Most Recent Lab Values WBC 7.1 K/uL (4.8-10.8) 06/01/17 07:05 RBC 5.16 Mil/uL (3.80-5.20) 06/01/17 07:05 Hgb 15.2 g/dL (11.0-16.0) 06/01/17 07:05 Hct 45.5 % (34.0-47.0) 06/01/17 07:05 MCV 88.1 fL (81.0-99.0) 06/01/17 07:05 MCH 29.4 pg (27.0-31.0) 06/01/17 07:05 MCHC 33.4 g/dL (33.0-37.0) 06/01/17 07:05 RDW 13.7 % (11.5-14.5) 06/01/17 07:05 Plt Count 208 K/uL (130-400) 06/01/17 07:05 MPV 9.7 fL (7.2-11.7) 06/01/17 07:05 Neut % (Auto) 57.0 % (50.0-75.0) 06/01/17 07:05 Lymph % (Auto) 25.8 % (20.0-40.0) 06/01/17 07:05 [place] % (Auto) 11.1 % (0.0-10.0) H 06/01/17 07:05 Eos % (Auto) 5.0 % (0.0-4.0) H 06/01/17 07:05 Baso % (Auto) 1.1 % (0.0-2.0) 06/01/17 07:05 Neut # 4.1 K/uL (1.8-7.0) 06/01/17 07:05 Lymph # 1.8 K/uL (1.0-4.3) 06/01/17 07:05 [place] # 0.8 K/uL (0.0-0.8) 06/01/17 07:05 Eos # 0.4 K/uL (0.0-0.7) 06/01/17 07:05 Baso # 0.1 K/uL (0.0-0.2) 06/01/17 07:05 PT 10.8 SECONDS (9.7-12.2) 05/29/17 07:59 INR 1.0 05/29/17 07:59 APTT 32 SECONDS (21-34) 05/29/17 07:59 Sodium 139 mmol/L (132-148) 06/01/17 07:05 Potassium 3.6 mmol/L (3.6-5.2) 06/01/17 07:05 Chloride 100 mmol/L (98-107) 06/01/17 07:05 Carbon Dioxide 29 mmol/L (22-30) 06/01/17 07:05 Anion Gap 14 (10-20) 06/01/17 07:05 BUN 15 mg/dL (7-17) 06/01/17 07:05 Creatinine 0.8 MG/DL (0.7-1.2) 06/01/17 07:05 Est GFR ( Amer) > 60 06/01/17 07:05 Est GFR (Non-Af Amer) > 60 06/01/17 07:05 POC Glucose (mg/dL) 136 mg/dL (65-110) H 06/02/17 06:36 Random Glucose 143 mg/dL (65-105) H 06/01/17 07:05 Hemoglobin A1c 11.8 % (4.2-6.5) H 05/30/17 07:06 Calcium 9.3 mg/dl (8.6-10.4) 06/01/17 07:05 Phosphorus 4.0 mg/dL (2.5-4.5) 06/01/17 07:05 Magnesium 1.9 mg/dL (1.6-2.3) 06/01/17 07:05 Total Bilirubin 0.5 mg/dL (0.2-1.3) 06/01/17 07:05 AST 61 U/L (14-36) H 06/01/17 07:05 ALT 106 U/L (9-52) H 06/01/17 07:05 Alkaline Phosphatase 56 U/L (38-126) 06/01/17 07:05 Total Creatine Kinase 141 U/L (30-135) H 05/30/17 13:17 CK-MB (Mass) 0.71 ng/mL (0.0-3.38) 05/30/17 13:17 Troponin I < 0.0120 ng/mL (0.00-0.120) 05/29/17 07:59 Troponin I, Quant < 0.0120 ng/mL (0.00-0.120) 05/30/17 13:17 NT-Pro-B Natriuret Pep 170 pg/mL (0-900) 05/29/17 07:59 Total Protein 6.9 g/dL (6.3-8.3) 06/01/17 07:05 Albumin 3.9 g/dL (3.5-5.0) 06/01/17 07:05 Globulin 3.0 gm/dL (2.2-3.9) 06/01/17 07:05 Albumin/Globulin Ratio 1.3 (1.0-2.1) 06/01/17 07:05 Triglycerides 151 mg/dL (0-149) H 05/30/17 07:06 Cholesterol 216 mg/dL (0-199) H 05/30/17 07:06 LDL Cholesterol Direct 151 mg/dL (0-129) H 05/30/17 07:06 HDL Cholesterol 53 mg/dL (30-70) 05/30/17 07:06 Free T4 1.09 ng/dL (0.78-2.19) 05/30/17 07:06 TSH 3rd Generation 1.85 mIU/L (0.46-4.68) 05/30/17 07:06 Hepatitis A IgM Ab Negative (NEGATIVE) 05/30/17 07:06 Hep Bs Antigen Negative (NEGATIVE) 05/30/17 07:06 Hep B Core IgM Ab Negative (NEGATIVE) 05/30/17 07:06 Hepatitis C Antibody Negative (NEGATIVE) 05/30/17 07:06 - Hospital Course Hospital Course: Upon Admission: CC: Chest Pain HPI: Patient is a 61 year old female with a history of uncontrolled IDDM, HTN, and hyperlipidemia. She is here because of reoccurring chest pain she has been having the past two days. The pain occurred while at rest 2 days ago which she says is on the left side just above her breast and also radiates to her back as well. She describes the pain as a sharp pain that is sometimes 9/10. Yesterday while driving to work she says the pain felt "heavy". She also said her blood pressure was very at 200s/100. She said they gave her nitro which she said relieved her pain. She went to see her quality assurance engineer yesterday as well who advised her to go to the ED if her pain returned. She started having the pain again this morning. She admits to drinking one cup of coffee before coming the hospital in her car. She admits that she had the same kind of pain about a week ago as well. She reports having a stress test last year which she thinks was normal. She does not remember having an electrocardiogram preformed. PMH: see above PSH: denies FH: Mother heart disease, DM, HTN, chronic kidney disease SH: , works as a nurse in a assisted, former smoker quit 25 years ago, social drinking with one drink every month, denies illicit drug use. Allergies: NKDA PMD: Dr. Renner Computer Help Desk Representative: Dr. Cavanaugh Throughout Hospital Course: Patient was admitted for chest pain r/o ACS. She had a cardiac cath performed with Dr. Cavanaugh, which showed: Non obstructive coronaries. Normal EF Recommend Medical management. Patient was instructed to continue her current medications, a list was printed out for her. She is to follow up with Dr. Renner, Dr. Cavanaugh, and her saw operator after discharge. Stable angina Assessment and Plan: * Patient is to be admitted to tele/inpatient, Dr. Cavanaugh Computer Help Desk Representative consulted. * Morphine 2mg IVP q4h prn for pain, 4mg of Zofran IVP Q6H prn for nausea, Nitro SL as needed for chest pain. * Continue her home Aspirin, she was given Aspirin 325mg in the ED. * EKG reviewed in the ED showed no ST elevations or depressions. EKGS: NSR: X3 * TroponinX 3: negative * Chest pain which resolves with nitro * 05/29: one episode after admission * 05/30: mild episode at bedside this afternoon-->instructed nurse to give nitro /ISSAC and EKG to followup * 05/31: denies chest pain * Tsh, free t4, lipid panel- WNL * s/p Cardiac cath Elevated LFTs Assessment and Plan: * Most likely an cute phase reactant, Hepatitis panel and abdominal ultrasound. * Hepatitis panel: negative * Abdominal US (05/29/17): increased echogenicitiy of liver compatible fibro/ fatty infiltration * Patient is on statin-->will need to monitor given consideration for possible CAD/Angina. Will instruct patient to take every other day. DM (diabetes mellitus), type 2, uncontrolled Assessment and Plan: * Patient is on Tresiba 90 units daily which is not in formula, resident spoke with pharmacist who recommends Lantus 70 units, Novolog 14 units AC * 05/31: to give 1/2 dose of halfway insulin over night in preparation for cardiac cath in AM * Accu checks with sliding scale medium protocol. * Hgba1c: 11.8 * T, Chol: 216, LDL: 151, HDL:53 * Held Metformin component of Janumet 1000-50mg * Held her home Glimipride HTN (hypertension) Assessment and Plan: * uncontrolled * d/c Norvasc 5mg PO daily-->start low dose Lopressor 12.5mg PO bid * Lisinopril 40mg PO daily * Imdur 30mg PO daily * Aspirin 81mg PO daily Hyperlipidemia Assessment and Plan: * Pravastatin 20mg will change to Crestor equivalent, and also Tricor 145mg PO Daily * Will need to monitor her LFTs This is a brief summary of the patient's hospital course. Please review EMR for full record. Discharge Exam - Head Exam Head Exam: ATRAUMATIC, NORMOCEPHALIC - Additional Findings Additional findings: - Additional Findings Additional findings: - Constitutional Appears: No Acute Distress - Head Exam Head Exam: ATRAUMATIC, NORMOCEPHALIC - Eye Exam Eye Exam: EOMI, PERRL - ENT Exam ENT Exam: Mucous Membranes Moist - Respiratory Exam Respiratory Exam: Clear to Ausculation Bilateral. absent: Rales, Rhonchi, Wheezes - Cardiovascular Exam Cardiovascular Exam: REGULAR RHYTHM, +S1, +S2 - GI/Abdominal Exam GI & Abdominal Exam: Soft, Normal Bowel Sounds. absent: Distended, Tenderness - Extremities Exam Extremities Exam: absent: Calf Tenderness, Pedal Edema - Neurological Exam Neurological Exam: Alert, Awake, Oriented x3 - Psychiatric Exam Psychiatric exam: Normal Affect, Normal Mood - Skin Skin Exam: Dry, Intact, Normal Color, Warm Discharge Plan - Follow Up Plan Condition: STABLE Disposition: HOME/ ROUTINE Instructions: Angina (DC), Chest Pain (DC), Heart Healthy Diet (DC), Diabetic Foot Care (DC), Basic Carbohydrate Counting (DC), Meal Planning with the Plate Method (DC), Meal Planning with Diabetes Exchanges (DC), Hypertension (DC), Heart Catheterization (DC) Additional Instructions: Your cardiac catherization showed no obstructing arteries, you are to continue with medications only, please resume all medications as listed on the list given to you by the nurse. Do not resume the fenofibrate, since Dr. Renner switched you to fish oil. Please make an appointment to follow up with your PMD Dr. Renner within 1 week. Please make an appointment with your Credit Controller within 1 month. Please make an appointment with Dr. Cavanaugh within 1 week. Please return to the ED if your symptoms worsen or return. Referrals: Jacki Renner MD [Medical Doctor] - Juliano Cavanaugh MD [Staff Provider] - <Can Khan - Last Filed: 06/02/17 18:10> Provider - Provider Date of Admission: 05/29/17 10:23 Attending physician: Can Khan MD Hospital Course - Lab Results Lab Results: Most Recent Lab Values WBC 8.6 K/uL (4.8-10.8) 06/02/17 07:11 RBC 4.98 Mil/uL (3.80-5.20) 06/02/17 07:11 Hgb 14.7 g/dL (11.0-16.0) 06/02/17 07:11 Hct 44.0 % (34.0-47.0) 06/02/17 07:11 MCV 88.3 fL (81.0-99.0) 06/02/17 07:11 MCH 29.5 pg (27.0-31.0) 06/02/17 07:11 MCHC 33.5 g/dL (33.0-37.0) 06/02/17 07:11 RDW 14.0 % (11.5-14.5) 06/02/17 07:11 Plt Count 205 K/uL (130-400) 06/02/17 07:11 MPV 9.4 fL (7.2-11.7) 06/02/17 07:11 Neut % (Auto) 63.8 % (50.0-75.0) 06/02/17 07:11 Lymph % (Auto) 20.1 % (20.0-40.0) 06/02/17 07:11 [place] % (Auto) 11.9 % (0.0-10.0) H 06/02/17 07:11 Eos % (Auto) 3.3 % (0.0-4.0) 06/02/17 07:11 Baso % (Auto) 0.9 % (0.0-2.0) 06/02/17 07:11 Neut # 5.5 K/uL (1.8-7.0) 06/02/17 07:11 Lymph # 1.7 K/uL (1.0-4.3) 06/02/17 07:11 [place] # 1.0 K/uL (0.0-0.8) H 06/02/17 07:11 Eos # 0.3 K/uL (0.0-0.7) 06/02/17 07:11 Baso # 0.1 K/uL (0.0-0.2) 06/02/17 07:11 PT 10.8 SECONDS (9.7-12.2) 05/29/17 07:59 INR 1.0 05/29/17 07:59 APTT 32 SECONDS (21-34) 05/29/17 07:59 Sodium 141 mmol/L (132-148) 06/02/17 07:11 Potassium 4.1 mmol/L (3.6-5.2) 06/02/17 07:11 Chloride 98 mmol/L (98-107) 06/02/17 07:11 Carbon Dioxide 30 mmol/L (22-30) 06/02/17 07:11 Anion Gap 17 (10-20) 06/02/17 07:11 BUN 16 mg/dL (7-17) 06/02/17 07:11 Creatinine 0.8 MG/DL (0.7-1.2) 06/02/17 07:11 Est GFR ( Amer) > 60 06/02/17 07:11 Est GFR (Non-Af Amer) > 60 06/02/17 07:11 POC Glucose (mg/dL) 233 mg/dL (65-110) H 06/02/17 16:40 Random Glucose 121 mg/dL (65-105) H 06/02/17 07:11 Hemoglobin A1c 11.8 % (4.2-6.5) H 05/30/17 07:06 Calcium 9.1 mg/dl (8.6-10.4) 06/02/17 07:11 Phosphorus 4.4 mg/dL (2.5-4.5) 06/02/17 07:11 Magnesium 1.9 mg/dL (1.6-2.3) 06/02/17 07:11 Total Bilirubin 0.7 mg/dL (0.2-1.3) 06/02/17 07:11 AST 43 U/L (14-36) H D 06/02/17 07:11 ALT 85 U/L (9-52) H 06/02/17 07:11 Alkaline Phosphatase 55 U/L (38-126) 06/02/17 07:11 Total Creatine Kinase 141 U/L (30-135) H 05/30/17 13:17 CK-MB (Mass) 0.71 ng/mL (0.0-3.38) 05/30/17 13:17 Troponin I < 0.0120 ng/mL (0.00-0.120) 05/29/17 07:59 Troponin I, Quant < 0.0120 ng/mL (0.00-0.120) 05/30/17 13:17 NT-Pro-B Natriuret Pep 170 pg/mL (0-900) 05/29/17 07:59 Total Protein 7.0 g/dL (6.3-8.3) 06/02/17 07:11 Albumin 3.9 g/dL (3.5-5.0) 06/02/17 07:11 Globulin 3.1 gm/dL (2.2-3.9) 06/02/17 07:11 Albumin/Globulin Ratio 1.3 (1.0-2.1) 06/02/17 07:11 Triglycerides 151 mg/dL (0-149) H 05/30/17 07:06 Cholesterol 216 mg/dL (0-199) H 05/30/17 07:06 LDL Cholesterol Direct 151 mg/dL (0-129) H 05/30/17 07:06 HDL Cholesterol 53 mg/dL (30-70) 05/30/17 07:06 Free T4 1.09 ng/dL (0.78-2.19) 05/30/17 07:06 TSH 3rd Generation 1.85 mIU/L (0.46-4.68) 05/30/17 07:06 Hepatitis A IgM Ab Negative (NEGATIVE) 05/30/17 07:06 Hep Bs Antigen Negative (NEGATIVE) 05/30/17 07:06 Hep B Core IgM Ab Negative (NEGATIVE) 05/30/17 07:06 Hepatitis C Antibody Negative (NEGATIVE) 05/30/17 07:06 Attending/Attestation - Attestation I have personally seen and examined this patient.: Yes I have fully participated in the care of the patient.: Yes I have reviewed all pertinent clinical information, including history, physical exam and plan: Yes Notes (Text): 06/02/17 18:06 Patient was seen and examined at 10:30 AM. Exam, Assessment and Plan, Discharge instructions were thoroughly gone over with the resident. I confirmed with the patient that she had enough of the following medications at home: Insulin Degludec 90 units SC HS Insulin Lispro 14 units SC TID JanuMet 50-1,000 units PO 2x/day ASA 81 mg PO 1x/day Lisinopril 40 mg PO 1x/day Pravastatin 20 mg PO QHS Glimepiride 4 mg PO 1x/day Imdur 30 mg PO 1x/day She states she was instructed by PMD not to no longer take Fenofibrate. She was instructed by me verbally to follow up with PMD Dr. Renenr in 1 week, Credit Controller Dr. Bowles, and Computer Help Desk Representative Dr. Cavanaugh. Can Khan D.O.
[2017-06-02 07:30] LABS: BASO # 0.1 K/uL (0.0-0.2); BASO % 0.9 % (0.0-2.0); EOS # 0.3 K/uL (0.0-0.7); EOS % 3.3 % (0.0-4.0); LYMPH # 1.7 K/uL (1.0-4.3); LYMPH % 20.1 % (20.0-40.0); MEAN CELL VOLUME 88.3 fL (81.0-99.0); MEAN CORPUSCULAR HEMOGLOBIN 29.5 pg (27.0-31.0); MEAN CORPUSCULAR HGB CONC 33.5 g/dL (33.0-37.0); MEAN PLATELET VOLUME 9.4 fL (7.2-11.7); MONO % 11.9 % (0.0-10.0); WHITE BLOOD COUNT 8.6 K/uL (4.8-10.8)
[2017-06-02 07:57] LABS: CHLORIDE 98 mmol/L (98-107)
[2017-06-02 07:58] LABS: POTASSIUM 4.1 mmol/L (3.6-5.2); SODIUM 141 mmol/L (132-148)
[2017-06-02 08:00] LABS: ALB/GLOB RATIO 1.3 (1.0-2.1); AST/SGOT 43 U/L (14-36); BILIRUBIN,TOTAL 0.7 mg/dL (0.2-1.3); BLOOD UREA NITROGEN 16 mg/dL (7-17); CARBON DIOXIDE 30 mmol/L (22-30); GFR AFRICAN-AMERICAN > 60
[2017-06-02 08:01] LABS: ALKALINE PHOSPHATASE 55 U/L (38-126); ALT/SGPT 85 U/L (9-52); CALCIUM 9.1 mg/dl (8.6-10.4); GLUCOSE,RANDOM 121 mg/dL (65-105); MAGNESIUM 1.9 mg/dL (1.6-2.3); PHOSPHOROUS 4.4 mg/dL (2.5-4.5)
[2017-06-02] MEDS: (Novolin R) Insulin Human Regular 100 units/ml vial SC SCH ×3 (08:12→17:57)
[2017-06-02] MEDS: (Novolog) Insulin Aspart, Recombinant 100 u/ml 10 ml vial SC SCH ×3 (08:29→17:55)
[2017-06-02] MEDS ORDERED: Influenza Vaccine 60 mcg/0.5 mL SYR (4YR UP) IM ONE (14:00)
[2017-06-02 17:07] VITALS: BP 115/66; PULSE 60; RESP 20; TEMP 98.4; O2SAT 97
--- NOTE | 2017-06-04 11:41 | CARD ---
APPROVED REPORT EKG Measurement Heart [id number] [place] [id number] <Conclusion> Normal sinus rhythm Septal infarct, age undetermined Abnormal ECG
--- NOTE | 2017-06-04 11:43 | CARD ---
APPROVED REPORT EKG Measurement Heart [id number] [place] [id number] <Conclusion> Normal sinus rhythm Nonspecific T wave abnormality Abnormal ECG
--- NOTE | 2017-06-04 11:43 | CARD ---
APPROVED REPORT EKG Measurement Heart [id number] [place] [id number] [id number] <Conclusion> Normal sinus rhythm Normal ECG
--- NOTE | 2017-06-04 12:13 | CARD ---
APPROVED REPORT EKG Measurement Heart [id number] ID [id number] <Conclusion> Normal sinus rhythm Normal ECG
--- NOTE | 2017-06-07 12:41 | CARDCATH ---
PROCEDURE DATE: 06/01/2017 PROCEDURES: 1. Left heart catheterization and left ventricular angiogram. 2. Coronary angiogram. 3. Radiological supervision and interpretation of the left ventricular angiogram and coronary angiogram. PERFORMING PHYSICIAN: Juliano Cavanaugh MD CLINICAL INDICATIONS: 1. Unstable angina. 2. Hypertension. 3. Hyperlipidemia. 4. Diabetes. PROCEDURE: After informed consent, the patient was prepped and draped in the usual sterile fashion. A 2% lidocaine was given in the right groin for local anesthesia. Using micropuncture technique, 6-Algerian sheath was introduced into right common femoral artery. A JL4 6-Algerian diagnostic catheter was engaged into the left main coronary artery. Contrast injected and left coronary angiogram was performed. A JR4 6-Algerian diagnostic catheter was engaged into the right coronary artery. Contrast injected and right coronary angiogram was performed. A JR4 6-Algerian catheter crossed into the left ventricle across aortic valve. LV and diastolic pressure measured. Hand injection LV angiogram was performed. There was no gradient across the LV with pullback. There was no gradient across sciatic valve with the pullback. FINDINGS: 1. Left main coronary artery is patent. 2. Proximal and distal LAD and diagonal branches are patent. Mid LAD has a 40% eccentric stenosis. 3. Left circumflex and obtuse marginal branches are patent. 4. There is small size ramus. Ostial ramus is 60% nonobstructive stenosis. 5. Right coronary artery is dominant and patent. 6. LV ejection fraction is approximately 65%. No wall motion abnormalities noted. No gradient across the aortic valve. EDP is 16. IMPRESSION: 1. Small ramus is ostial 60% stenosis. Mid left anterior descending has 40% stenosis. Nonobstructive coronaries. 2. Normal left ventricular systolic function. Recommend aggressive medical management. Juliano Cavanaugh MD MTDJose
== END 2017-06-02 19:11 | disposition home or self-care (01) ==
LOC: C.ER 07:11 → C.9E 10:23 → INTOOBSV 10:23 → C.6T 13:30
PROVIDERS: ADMIT Family Medicine; ATTEND Family Medicine
PROC: B201YZZ Plain Radiography of Multiple Coronary Arteries using Other Contrast (ICD-10-PCS; 2017-06-01)
PROC: B205YZZ Plain Radiography of Left Heart using Other Contrast (ICD-10-PCS; 2017-06-01)
PROC: 4A023N7 Measurement of Cardiac Sampling and Pressure, Left Heart, Percutaneous Approach (ICD-10-PCS; principal; 2017-06-01 13:00)
DX: I20.8 Other forms of angina pectoris (principal); E11.65 Type 2 diabetes mellitus with hyperglycemia; K76.0 Fatty (change of) liver, not elsewhere classified; I10 Essential (primary) hypertension; E78.5 Hyperlipidemia, unspecified; Z79.4 Long term (current) use of insulin; Z87.891 Personal history of nicotine dependence; Z79.82 Long term (current) use of aspirin
CPT/HCPCS: 36415; 71010; 76700; 80053; 80061; 80074; 82550; 82553; 82948; 83036; 83735; 83880; 84100; 84439; 84443; 84484; 85025; 85610; 85730; 90471; 90674; 93005; 93306; 93458; 94770; 99285; C1760; C1769; C1887; G0378; J0360; J1644; J2250; J3010; Q9967

== ENCOUNTER 2018-08-19 22:42 | Emergency (ER) | payer OTHER, MEDICARE ==
[2018-08-19 22:42] VITALS: BMI 23.8
--- NOTE | 2018-08-19 23:23 | C.PDOC ---
History Of Present Illness 63 year old female with PMHx of HTN presents to the ED for evaluation of elevated blood pressure. Patient states she checked her blood pressure at home and at pharmacy and it was over 200 systolic. Patient states she is on 4 different medications for her blood pressure but ran out of 3 of them. Patient denies fever, chill, cough, headache, visual changes, CP, SOB, nausea, vomit, injury, fall, trauma. Chief Complaint (Nursing): High Blood Pressure History Per: Patient History/Exam Limitations: no limitations Onset/Duration Of Symptoms: Days Current Symptoms Are (Timing): Still Present Quality Of Symptoms: Asymptomatic Exacerbating Factor(s): Pos: Recently Missed Doses Of Medication Recent travel outside of the [place]: No Additional History Per: Patient Past Medical History Reviewed: Historical Data, Nursing Documentation, Vital Signs Vital Signs: Last Vital Signs Temp 98 F 08/19/18 22:45 Pulse 88 08/19/18 23:17 Resp 18 08/19/18 23:17 BP 187/103 H 08/19/18 23:17 Pulse Ox 98 08/19/18 23:17 - Medical History PMH: Diabetes, HTN, Hyperlipidemia Denies: Chronic Kidney Disease Surgical History: No Surg Hx - [facility] Procedures MEASURE OF CARDIAC SAMPL & PRESSURE, L HEART, PERC APPROACH (05/29/17) PLAIN RADIOGRAPHY OF LEFT HEART USING OTHER CONTRAST (05/29/17) PLAIN RADIOGRAPHY OF MULT COR ART USING OTH CONTRAST (05/29/17) Family History: States: Unknown Family Hx - Social History Hx Tobacco Use: Yes (quit smoking 25 years ago ) Hx Alcohol Use: Yes Hx Substance Use: No - Immunization History Hx Tetanus Toxoid Vaccination: No Hx Influenza Vaccination: Yes Hx Pneumococcal Vaccination: Yes Review Of Systems Constitutional: Negative for: Fever, Chills Eyes: Negative for: Vision Change Cardiovascular: Negative for: Chest Pain, Palpitations Respiratory: Negative for: Cough, Shortness of Breath Gastrointestinal: Negative for: Nausea, Vomiting, Abdominal Pain Skin: Negative for: Rash Neurological: Negative for: Weakness, Numbness, Headache, Dizziness Physical Exam - Physical Exam Appears: Non-toxic, No Acute Distress Skin: Normal Color, Warm, Dry Head: Atraumatic, Normacephalic Eye(s): bilateral: Normal Inspection Oral Mucosa: Moist Neck: Normal ROM, Supple Chest: Symmetrical Cardiovascular: Rhythm Regular Respiratory: Normal Breath Sounds, No Rales, No Rhonchi, No Wheezing Gastrointestinal/Abdominal: Soft, No Tenderness, No Guarding, No Rebound Extremity: Normal ROM, No Tenderness, No Swelling Neurological/Psych: Oriented x3, Normal Speech, Normal Cognition Gait: Steady ED Course And Treatment - Laboratory Results Result Diagrams: 08/19/18 23:49 08/19/18 23:49 ECG: Interpreted By Me, Viewed By Me ECG Rhythm: Sinus Rhythm ECG Interpretation: Normal Interpretation Of ECG: Normal axis, normal intervals Rate From EC (BPM) O2 Sat by Pulse Oximetry: 98 (On RA) Pulse Ox Interpretation: Normal Medical Decision Making Medical Decision Making: Plan: * EKG * Labs * Hydrodiuril 25 mg PO * Lopressor 25 mg PO * Norvasac 5 mg PO Disposition - Disposition Referrals: Quentin Renner MD [Medical Doctor] - Disposition: HOME/ ROUTINE Disposition Time: 00:30 Condition: IMPROVED Additional Instructions: DONNELL SAENZ, thank you for letting us take care of you today. The emergency medical care you received today was directed at your acute symptoms. If you were prescribed any medication, please fill it and take as directed. It may take several days for your symptoms to resolve. Return to the Emergency Department if your symptoms worsen, do not improve, or if you have any other problems. Please contact your doctor or call one of the physicians/clinics you have been referred to that are listed on the Patient Visit Information form that is included in your discharge packet. Bring any paperwork you were given at discharge with you along with any medications you are taking to your follow up visit. Our treatment cannot replace ongoing medical care by a primary care provider outside of the emergency department. Thank you for allowing the [facility] team to be part of your care today. Follow up with your primary care doctor in 2-3 days for re-evaluation and further management. Prescriptions: amLODIPine [Norvasc] 5 mg PO DAILY #10 tab hydroCHLOROthiazide [Hydrodiuril] 25 mg PO DAILY #10 tab Metoprolol Tartrate [Lopressor] 25 mg PO DAILY #10 tab Instructions: High Blood Pressure in Adults Forms: My eStore App Connect (Greek) - Clinical Impression Clinical Impression: HTN (hypertension) - Scribe Statement The provider has reviewed the documentation as recorded by the Scribe Berry Murphy All medical record entries made by the Scribe were at my direction and personal ly dictated by me. I have reviewed the chart and agree that the record accurately reflects my personal performance of the history, physical exam, medical decision making, and the department course for this patient. I have also personally directed, reviewed, and agree with the discharge instructions and disposition.
[2018-08-19 23:53] LABS: BASO # 0.1 K/uL (0.0-0.2); BASO % 1.8 % (0.0-2.0); EOS # 0.4 K/uL (0.0-0.7); EOS % 6.9 % (0.0-4.0); HEMOGLOBIN 12.1 g/dL (11.0-16.0); LYMPH # 1.6 K/uL (1.0-4.3); LYMPH % 25.2 % (20.0-40.0); MEAN CELL VOLUME 86.7 fL (81.0-99.0); MEAN CORPUSCULAR HGB CONC 33.4 g/dL (33.0-37.0); MEAN PLATELET VOLUME 8.3 fL (7.2-11.7); MONO # 0.5 K/uL (0.0-0.8); MONO % 8.7 % (0.0-10.0); NEUT # 3.6 K/uL (1.8-7.0); NEUT % 57.4 % (50.0-75.0); RBC 4.18 Mil/uL (3.80-5.20); RED CELL DISTRIBUTION WIDTH 13.7 % (11.5-14.5); WHITE BLOOD COUNT 6.3 K/uL (4.8-10.8)
[2018-08-20 00:04] LABS: ALB/GLOB RATIO 1.2 (1.0-2.1); ALBUMIN 3.7 g/dL (3.5-5.0); ALT/SGPT 38 U/L (9-52); AST/SGOT 29 U/L (14-36); BLOOD UREA NITROGEN 15 mg/dL (7-17); CALCIUM 8.9 mg/dl (8.6-10.4); GFR NON-AFRICAN AMERICAN > 60
[2018-08-20 01:01] VITALS: BP 131/71; PULSE 72; RESP 16; TEMP 98.2
[2018-08-20 05:37] VITALS: O2SAT 98
== END 2018-08-20 01:12 | disposition home or self-care (01) ==
LOC: C.ER 22:42
DX: I10 Essential (primary) hypertension (principal); E11.9 Type 2 diabetes mellitus without complications; E78.5 Hyperlipidemia, unspecified; Z87.891 Personal history of nicotine dependence